=== PATIENT | female | born 2000 | race Caucasian/White ===

== ENCOUNTER 2020-12-29 10:48 | Emergency (ER) | payer OTHER, SELFPAY ==
--- NOTE | 2020-12-29 13:25 | RAD REPORT ---
EXAM DESCRIPTION: CT - Head Brain Wo Cont - 12/29/2020 1:04 pm CLINICAL HISTORY: Headache COMPARISON: None. TECHNIQUE: Computed axial tomography of the head was obtained. IV contrast was not requested. All CT scans are performed using dose optimization technique as appropriate and may include automated exposure control or mA/KV adjustment according to patient size. FINDINGS: An intracranial bleed is not seen . The ventricles are normal in caliber. No extra-axial fluid collection is noted. Fluid within the sinuses/ mastoids is not seen. IMPRESSION: No acute intracranial abnormality is seen. If patient's symptoms persist MRI of the bra in would be recommended.
[2020-12-29] MEDS ORDERED: METOCLOPRAMIDE 10 MG/2mL INJ ONE ×2 (13:32→14:16)
[2020-12-29] MEDS ORDERED: dexAMETHasone 10 MG/ML VIAL ONE (13:33)
[2020-12-29] MEDS ORDERED: NA CHLORIDE 0.9% 500 ML ONE (13:33)
[2020-12-29 13:49] LABS: Urine Blood 2+ (NEG); Urine Glucose NEGATIVE (NEG); Urine Protein NEGATIVE (NEG); Urine Specific Gravity 1.025 (1.005-1.030); Urine pH 5.5 (5.0-7.0)
[2020-12-29] MEDS ORDERED: DIPHENHYDRAMINE 50 MG/ML VIAL ONE (14:16)
[2020-12-29] MEDS ORDERED: KETOROLAC 30 MG/ML INJ ONE (14:17)
--- NOTE | 2020-12-29 14:53 | EDPHYS ---
Physician Documentation [facility] Name: Arlet Cannon Age: 20 yrs Sex: Female : 2000 Arrival Date: 12/29/2020 Time: 10:50 Bed 7 Private MD: ED Physician Floyd Quiros HPI: 12/29 12:45 This 20 yrs old Female presents to ER via Ambulatory with complaints of jmm Headache. 12:45 The patient complains of pain to the left caodaism and right caodaism. Onset: The jmm symptoms/episode began/occurred gradually, 2 week(s) ago. Associated signs and symptoms: Pertinent positives: nausea, Pertinent negatives: fever. This is a 20 year old female with no chronic medical conditions that presents to the ED with complaints of headache beginning 2 weeks ago. Denies trauma. Headache has been gradual on onset. Light exacerbates pain. Denies vomiting but states having nausea. . Historical: - Allergies: 10:58 No Known Allergies; sv - PMHx: 10:58 None; sv - PSHx: 10:58 nose; sv - Immunization history:: Adult Immunizations up to date. - Social history:: Smoking status: Reported history of juuling and/or vaping. ROS: 12:45 Constitutional: Negative for fever, chills, and weight loss, Cardiovascular: Negative jmm for chest pain, palpitations, and edema, Respiratory: Negative for shortness of breath, cough, wheezing, and pleuritic chest pain. 12:45 Neuro: Positive for headache. 12:45 All other systems are negative. Exam: 12:45 Constitutional: This is a well developed, well nourished patient who is awake, alert, jmm and in no acute distress. Head/Face: atraumatic. Eyes: EOMI, no conjunctival erythema appreciated ENT: Moist Mucus Membranes Neck: Trachea midline, Supple Chest/axilla: Normal chest wall appearance and motion. Cardiovascular: Regular rate and rhythm. No edema appreciated Respiratory: Normal respirations, no respiratory distress appreciated Abdomen/GI: Non distended, soft Back: Normal ROM Skin: General appearance color normal MS/ Extremity: Moves all extremities, no obvious deformities appreciated, no edema noted to the lower extremities Neuro: Awake and alert, normal gait Psych: Behavior is normal, Mood is normal, Patient is cooperative and pleasant Vital Signs: 10:59 BP 133 / 89; Pulse 76; Resp 20; Temp 98.6; Pulse Ox 100% ; Weight 63.5 kg; Height 5 ft. sv 3 in. (160.02 cm); Pain 10/10; 15:01 Pain 6/10; ss 10:59 Body Mass Index 24.80 (63.50 kg, 160.02 cm) sv MDM: 12:45 Patient medically screened. [facility] 14:49 Data reviewed: vital signs, nurses notes. Counseling: I had a detailed discussion with brittni the patient and/or guardian regarding: the historical points, exam findings, and any diagnostic results supporting the discharge/admit diagnosis, radiology results, the need for outpatient follow up, to return to the emergency department if symptoms worsen or persist or if there are any questions or concerns that arise at home. ED course: MORALEZ relieved in the ED. Neck is supple, patient is afebrile. I do not suspect SAH or Meningitis. Patient is advised to follow up with pcp and otherwise given strict return precautions. Patient understood and agrees with the plan of care. . 12/29 13:19 Order name: Urine Dipstick--Ancillary (enter results); Complete Time: 13:50 12/29 13:19 Order name: Urine --Ancillary (enter results); Complete Time: 13:50 12/29 12:53 Order name: CT Head Brain wo Cont; Complete Time: 13:26 [facility] 12/29 12:53 Order name: Saline Lock; Complete Time: 13:30 [facility] 12/29 13:06 Order name: Urine Dipstick-Ancillary (obtain specimen); Complete Time: 13:06 ss 12/29 13:06 Order name: Urine Test (obtain specimen); Complete Time: 13:06 ss Administered Medications: 13:28 Drug: Reglan 10 mg Route: IVP; Site: right antecubital; hb 14:00 Follow up: Response: No adverse reaction; No change in condition ss 13:28 Drug: Decadron - Dexamethasone 10 mg Route: IVP; Site: right antecubital; hb 14:00 Follow up: Response: No adverse reaction; No change in condition ss 13:30 Drug: NS 0.9% 500 ml Route: IV; Rate: bolus; Site: right antecubital; hb 15:04 Follow up: IV Status: Completed infusion; IV Intake: 500ml ss 14:01 Drug: Ketorolac 30 mg Route: IVP; Site: right antecubital; hb 15:02 Follow up: Response: No adverse reaction; Marked relief of symptoms; Pain is decreased ss 14:02 Drug: Reglan 10 mg Route: IVP; Site: right antecubital; hb 15:02 Follow up: Response: No adverse reaction; Pain is decreased ss 14:02 Drug: diphenhydrAMINE 12.5 mg Route: IVP; Site: right antecubital; hb 15:02 Follow up: Response: No adverse reaction; Pain is decreased ss Disposition: 15:08 Co-signature as Attending Physician, Floyd Quiros MD I agree with the assessment and kdr plan of care. Disposition: 12/29/20 14:53 Discharged to Home. Impression: Headache. - Condition is Stable. - Medication Reconciliation Form, Thank You Letter, Antibiotic Education, Prescription Opioid Use form. - Follow up: Larry Agosto MD; When: 2 - 3 days; Reason: Recheck today's complaints, Continuance of care, Re-evaluation by your physician. Signatures: Dispatcher [employer] Margie Hamlin RN RN Floyd Quiros MD MD [facility] Phillip Treadwell PA PA [facility] Maddie Madrid RN RN Nancie Adair RN RN Corrections: (The following items were deleted from the chart) 15:04 14:53 12/29/2020 14:53 Discharged to Home. Impression: Headache. Condition is Stable. ss Forms are Medication Reconciliation Form, Thank You Letter, Antibiotic Education, Prescription Opioid Use. Follow up: Larry Agosto; When: 2 - 3 days; Reason: Recheck today's complaints, Continuance of care, Re-evaluation by your physician. brittni
--- NOTE | 2020-12-29 14:53 | ER ---
Nurse's Notes [facility] Name: Arlet Cannon Age: 20 yrs Sex: Female : 2000 Arrival Date: 12/29/2020 Time: 10:50 Bed 7 Private MD: Diagnosis: Headache Presentation: 12/29 10:57 Chief complaint: Patient states: headache, nausea, lightheaded, "full body pain" x 1.5 sv weeks. Coronavirus screen: Client denies travel out of the [place] in the last 14 days. At this time, the client does not indicate any symptoms associated with coronavirus-19. Ebola Screen: No symptoms or risks identified at this time. Risk Assessment: Do you want to hurt yourself or someone else? Patient reports no desire to harm self or others. Onset of symptoms was November 2020. 10:57 Method Of Arrival: Ambulatory sv 10:57 Acuity: KARLA 3 sv 10:59 Initial Sepsis Screen: Does the patient meet any 2 criteria? No. Patient's initial sv sepsis screen is negative. Does the patient have a suspected source of infection? No. Patient's initial sepsis screen is negative. Triage Assessment: 11:01 Headache History: The patient has had previous headaches and this one is similar to previous episodes. General: Appears in no apparent distress. uncomfortable, Behavior is calm, cooperative, appropriate for age. Neuro: Level of Consciousness is awake, alert, obeys commands, Oriented to person, place, time, situation, Gait is steady, Speech is normal. Respiratory: Respiratory effort is even, unlabored. Historical: - Allergies: 10:58 No Known Allergies; sv - PMHx: 10:58 None; sv - PSHx: 10:58 nose; sv - Immunization history:: Adult Immunizations up to date. - Social history:: Smoking status: Reported history of juuling and/or vaping. Screenin:53 Abuse screen: Denies threats or abuse. Denies injuries from another. Nutritional ss screening: No deficits noted. Tuberculosis screening: Never had TB. Fall Risk None identified. Assessment: 12:53 General: Appears in no apparent distress. comfortable, pt is laughing and joking with ss staff. Behavior is calm, cooperative, Denies fever, feeling ill, fatigue, chills. Pain: Complains of pain in head in entire, back of neck Pain currently is 8 out of 10 on a pain scale. at worst was 10 out of 10 on a pain scale. Quality of pain is described as sharp, Pain began x "weeks-months" Is intermittent, episodic. Neuro: Level of Consciousness is awake, alert, obeys commands, Oriented to person, place, time, situation. Cardiovascular: Capillary refill < 3 seconds is brisk. Respiratory: Airway is patent Respiratory effort is even, unlabored, Respiratory pattern is regular, symmetrical. GI: Reports nausea. : No signs and/or symptoms were reported regarding the genitourinary system. Denies burning with urination, urinary frequency. EENT: Reports photophobia. Derm: Skin is intact, is healthy with good turgor, Skin is dry, Skin is pink, warm \\T\\ dry. normal. Musculoskeletal: Circulation, motion, and sensation intact. Range of motion: intact in all extremities, Swelling absent. 13:05 Reassessment: Pt to CT now VIA wheelchair. 14:14 Reassessment: Pt reports that initial medications that were given did not help at all. EHSAN Fisher notified. Additional medications ordered and administered. Pt is anxious to go home, but verbalizes understanding plan of care. 14:42 Reassessment: Patient appears in no apparent distress at this time. Patient and/or ss family updated on plan of care and expected duration. Pain level reassessed. Patient is alert, oriented x 3, equal unlabored respirations, skin warm/dry/pink. Patient states feeling better. Patient states symptoms have improved. Vital Signs: 10:59 BP 133 / 89; Pulse 76; Resp 20; Temp 98.6; Pulse Ox 100% ; Weight 63.5 kg; Height 5 ft. sv 3 in. (160.02 cm); Pain 10/10; 15:01 Pain 6/10; ss 10:59 Body Mass Index 24.80 (63.50 kg, 160.02 cm) sv ED Course: 10:50 Patient arrived in ED. mr 10:58 Triage completed. sv 10:59 Arm band placed on. sv 11:16 Phillip Treadwell PA is PHCP. [facility] 11:16 Floyd Quiros MD is Attending Physician. [facility] 12:53 Maddie Madrid, RN is Primary Nurse. ss 12:53 Patient has correct armband on for positive identification. Bed in low position. Call ss light in reach. 13:03 CT Head Brain wo Cont In Process Unspecified. EDMS 13:26 Missed attempt(s): 20 gauge in right antecubital area. Bleeding controlled, band aid hb applied, catheter tip intact. 13:30 Inserted saline lock: 22 gauge in right antecubital area, using aseptic technique. hb 14:53 Larry Agosto MD is Referral Physician. [facility] 15:02 No provider procedures requiring assistance completed. IV discontinued, intact, ss bleeding controlled, No redness/swelling at site. Pressure dressing applied. Administered Medications: 13:28 Drug: Reglan 10 mg Route: IVP; Site: right antecubital; hb 14:00 Follow up: Response: No adverse reaction; No change in condition ss 13:28 Drug: Decadron - Dexamethasone 10 mg Route: IVP; Site: right antecubital; hb 14:00 Follow up: Response: No adverse reaction; No change in condition 13:30 Drug: NS 0.9% 500 ml Route: IV; Rate: bolus; Site: right antecubital; hb 15:04 Follow up: IV Status: Completed infusion; IV Intake: 500ml ss 14:01 Drug: Ketorolac 30 mg Route: IVP; Site: right antecubital; hb 15:02 Follow up: Response: No adverse reaction; Marked relief of symptoms; Pain is decreased ss 14:02 Drug: Reglan 10 mg Route: IVP; Site: right antecubital; hb 15:02 Follow up: Response: No adverse reaction; Pain is decreased ss 14:02 Drug: diphenhydrAMINE 12.5 mg Route: IVP; Site: right antecubital; hb 15:02 Follow up: Response: No adverse reaction; Pain is decreased ss Intake: 15:04 IV: 500ml; Total: 500ml. Outcome: 14:53 Discharge ordered by . [facility] 15:02 Discharged to home ambulatory. 15:02 Condition: good 15:02 Discharge instructions given to patient, family, Instructed on discharge instructions, follow up and referral plans. Demonstrated understanding of instructions, follow-up care, medications. 15:04 Patient left the ED. ss Signatures: Dispatcher [employer] EDMS Margie Hackett RN RN sv Phillip Treadwell PA PA jmm Rivera, Mary mr Maddie Madrid RN RN Nancie Adair RN RN hb Corrections: (The following items were deleted from the chart) 11:00 10:59 Pulse 76bpm; Resp 20bpm; Pulse Ox 100%; Temp 98.6F; 63.5 kg; Height 5 ft. 3 in.; sv BMI: 24.8; Pain 10/10; sv 13:31 13:30 Inserted saline lock: 20 gauge in right antecubital area, using aseptic hb technique. hb
[2020-12-29 15:08] VITALS: BP 133/89; TEMP 98.6; O2SAT 100
== END 2020-12-29 15:04 | disposition home or self-care (01) ==
LOC: ER 10:48
DX: R51.9 Headache, unspecified (principal); Z87.891 Personal history of nicotine dependence
CPT/HCPCS: 70450; 81003; 81025; 96361; 96374; 96375; 99283; J1100; J1200; J2765; J7040

== ENCOUNTER 2021-03-18 00:11 | Emergency (ER) | payer SELFPAY ==
[2021-03-18 01:25] LABS: Urine Blood Negative (Negative); Urine Glucose Negative (Negative); Urine Protein Negative (Negative); Urine pH 5.5 (5.0-7.0)
[2021-03-18 01:28] LABS: Absolute Lymphocytes (CBC) 1.4 K/uL (0.7-4.9); Basophils % 0.6 % (0-1.3); Hematocrit 39.8 % (36.0-45.0); Lymphocytes % 22.7 % (15.3-44.8); MPV 9.1 fL (7.6-11.3); RBC Red Blood Cell Count 4.86 M/uL (3.86-4.86)
[2021-03-18] MEDS ORDERED: NA CHLORIDE 0.9% 1,000 ML ONE (01:44)
[2021-03-18] MEDS ORDERED: ONDANSETRON 4 MG/2 ML VIAL ONE (01:44)
[2021-03-18 01:54] LABS: ALT/SGPT 18 U/L (12-78); Albumin 4.2 g/dL (3.4-5.0); Alkaline Phosphatase 59 U/L (45-117); BUN Blood Urea Nitrogen 11 mg/dL (7-18); Bicarbonate 23 mmol/L (21-32); Bilirubin Direct < 0.1 mg/dL (0-0.2); Bilirubin Total 0.2 mg/dL (0.2-1.0); Glucose Level 86 mg/dL (74-106); Lipase 243 U/L (73-393); Protein, Total 7.7 g/dL (6.4-8.2); Sodium Level 139 mmol/L (136-145)
[2021-03-18 01:55] LABS: AST/SGOT 14 U/L (15-37); Potassium 4.3 mmol/L (3.5-5.1)
--- NOTE | 2021-03-18 02:33 | ER ---
Nurse's Notes [facility] Name: Arlet Cannon Age: 20 yrs Sex: Female : 2000 Arrival Date: 03/18/2021 Time: 00:15 Bed 16 Private MD: Diagnosis: Nausea and vomiting Presentation: 03/18 00:31 Chief complaint: Patient states: I have been feeling off for the past 3 week and have jb4 vomited 3 times in the past 3 weeks, once tonight. I have chest congestion, runny nose, and coughing. I last vomited tonight at work. Coronavirus screen: Client denies travel out of the [place] in the last 14 days. congestion, cough unrelated to allergies, fatigue, nausea, vomiting. Client presents with at least one sign or symptom that may indicate coronavirus-19. Standard/surgical mask placed on the client. Provider contacted for isolation considerations. Ebola Screen: No symptoms or risks identified at this time. Initial Sepsis Screen: Does the patient meet any 2 criteria? No. Patient's initial sepsis screen is negative. Does the patient have a suspected source of infection? No. Patient's initial sepsis screen is negative. Risk Assessment: Do you want to hurt yourself or someone else? Patient reports no desire to harm self or others. Onset of symptoms was March 18, 2021. 00:31 Method Of Arrival: Ambulatory jb4 00:31 Acuity: KARLA 3 jb4 Historical: - Allergies: 00:34 No Known Allergies; jb4 - Home Meds: 00:34 None [Active]; jb4 - PMHx: 00:34 None; jb4 - PSHx: 00:34 nose; jb4 - Immunization history:: Adult Immunizations up to date, Client reports having NOT received the Covid vaccine. - Social history:: Smoking status: Patient denies any tobacco usage or history of. Patient/guardian denies using alcohol, street drugs. Screenin:10 Abuse screen: Denies threats or abuse. Nutritional screening: No deficits noted. ea Tuberculosis screening: No symptoms or risk factors identified. Fall Risk IV access (20 points). Assessment: 01:10 General: Appears in no apparent distress. Behavior is calm, cooperative, appropriate ea for age. Pain: Complains of pain in abdomen. Neuro: Level of Consciousness is awake, alert, obeys commands, Oriented to person, place, time. Respiratory: Airway is patent Respiratory effort is even, unlabored, Respiratory pattern is regular, symmetrical. GI: Abdomen is non-distended. Derm: Skin is pink, warm \T\ dry. 02:48 Reassessment: Patient and/or family updated on plan of care and expected duration. Pain ea level reassessed. Patient is alert, oriented x 3, equal unlabored respirations, skin warm/dry/pink. Discharge instruction given to patient verbalized the understanding of instruction. Pt left ED ambulatory tolerating well. Vital Signs: 00:31 BP 122 / 81; Pulse 99; Resp 16; Temp 98.3(O); Pulse Ox 96% on R/A; Weight 65.77 kg (R); jb4 Height 5 ft. 3 in. (160.02 cm) (R); Pain 8/10; 00:31 Body Mass Index 25.69 (65.77 kg, 160.02 cm) jb4 ED Course: 00:15 Patient arrived in ED. bp1 00:31 Eric Cuadra MD is Attending Physician. tw4 00:33 Triage completed. jb4 00:34 Arm band placed on. jb4 00:52 Lianna Moreno, CHERRIE is Primary Nurse. ea 01:10 Patient has correct armband on for positive identification. Bed in low position. Call ea light in reach. Side rails up X2. 01:10 Inserted saline lock: 20 gauge in right antecubital area, using aseptic technique. ea Blood collected. 02:47 No provider procedures requiring assistance completed. IV discontinued, intact, ea bleeding controlled, No redness/swelling at site. Pressure dressing applied. Administered Medications: 01:30 Drug: Zofran (Ondansetron) 4 mg Route: IVP; Site: right antecubital; ea 02:45 Follow up: Response: No adverse reaction ea 01:31 Drug: NS 0.9% 1000 ml Route: IV; Rate: 1 bolus; Site: right antecubital; ea 02:45 Follow up: Response: No adverse reaction; IV Status: Completed infusion; IV Intake: ea 700ml Intake: 02:45 IV: 700ml; Total: 700ml. ea Outcome: 02:33 Discharge ordered by . tw4 02:47 Discharged to home ambulatory, with family. ea 02:47 Condition: stable 02:47 Discharge instructions given to patient, Instructed on discharge instructions, follow up and referral plans. medication usage, Demonstrated understanding of instructions, follow-up care, medications, Prescriptions given X 1. 02:48 Patient left the ED. daphney Signatures: Rd Sepulveda RN RN jb4 Lianna Moreno RN RN Eric Andujar MD MD tw4 Olivia Dos Santos [facility] [place]
--- NOTE | 2021-03-18 02:33 | EDPHYS ---
Physician Documentation [facility] Name: Arlet Cannon Age: 20 yrs Sex: Female : 2000 Arrival Date: 03/18/2021 Time: 00:15 Bed 16 Private MD: ED Physician Eric Cuadra HPI: 03/18 02:51 This 20 yrs old Female presents to ER via Ambulatory with complaints of tw4 Dizziness, Nausea/Vomiting. 02:51 The patient presents to the emergency department with nausea, vomiting. Onset: The tw4 symptoms/episode began/occurred today. Possible causes: unknown. The symptoms are aggravated by nothing. The symptoms are alleviated by nothing. Associated signs and symptoms: The patient has no apparent associated signs or symptoms. Severity of symptoms: At their worst the symptoms were mild in the emergency department the symptoms have resolved. The patient has not experienced similar symptoms in the past. Historical: - Allergies: 00:34 No Known Allergies; jb4 - Home Meds: 00:34 None [Active]; jb4 - PMHx: 00:34 None; jb4 - PSHx: 00:34 nose; jb4 - Immunization history:: Adult Immunizations up to date, Client reports having NOT received the Covid vaccine. - Social history:: Smoking status: Patient denies any tobacco usage or history of. Patient/guardian denies using alcohol, street drugs. ROS: 02:51 Constitutional: Negative for fever, chills, and weight loss, Eyes: Negative for injury, tw4 pain, redness, and discharge, Cardiovascular: Negative for chest pain, palpitations, and edema, Respiratory: Negative for shortness of breath, cough, wheezing, and pleuritic chest pain, Back: Negative for injury and pain, MS/Extremity: Negative for injury and deformity, Skin: Negative for injury, rash, and discoloration, Neuro: Negative for headache, weakness, numbness, tingling, and seizure. 02:51 Abdomen/GI: Positive for abdominal pain, nausea and vomiting, nausea, vomiting, and diarrhea, nausea, vomiting, Negative for nausea and vomiting, diarrhea, constipation, abdominal cramps, abdominal distension, anorexia, dysphagia, hematemesis, black/tarry stool, rectal pain, rectal bleeding. Exam: 02:51 Constitutional: This is a well developed, well nourished patient who is awake, alert, tw4 and in no acute distress. Head/Face: Normocephalic, atraumatic. Chest/axilla: Normal chest wall appearance and motion. Nontender with no deformity. No lesions are appreciated. Cardiovascular: Regular rate and rhythm with a normal S1 and S2. No gallops, murmurs, or rubs. Normal PMI, no JVD. No pulse deficits. Respiratory: Lungs have equal breath sounds bilaterally, clear to auscultation and percussion. No rales, rhonchi or wheezes noted. No increased work of breathing, no retractions or nasal flaring. Abdomen/GI: Soft, non-tender, with normal bowel sounds. No distension or tympany. No guarding or rebound. No evidence of tenderness throughout. Back: No spinal tenderness. No costovertebral tenderness. Full range of motion. Skin: Warm, dry with normal turgor. Normal color with no rashes, no lesions, and no evidence of cellulitis. MS/ Extremity: Pulses equal, no cyanosis. Neurovascular intact. Full, normal range of motion. Neuro: Awake and alert, GCS 15, oriented to person, place, time, and situation. Cranial nerves II-XII grossly intact. Motor strength 5/5 in all extremities. Sensory grossly intact. Cerebellar exam normal. Normal gait. Vital Signs: 00:31 BP 122 / 81; Pulse 99; Resp 16; Temp 98.3(O); Pulse Ox 96% on R/A; Weight 65.77 kg (R); jb4 Height 5 ft. 3 in. (160.02 cm) (R); Pain 8/10; 00:31 Body Mass Index 25.69 (65.77 kg, 160.02 cm) jb4 MDM: 00:51 Patient medically screened. tw4 02:51 Differential diagnosis: Nonspecific abd pain, gastritis, cholecystitis. Data reviewed: tw4 vital signs, nurses notes. Data interpreted: Pulse oximetry: Interpretation: normal. Counseling: I had a detailed discussion with the patient and/or guardian regarding: the historical points, exam findings, and any diagnostic results supporting the discharge/admit diagnosis. Special discussion: I discussed with the patient/guardian in detail that at this point there is no indication for admission to the hospital. It is understood, however, that if the symptoms persist or worsen the patient needs to return immediately for re-evaluation. 03/18 00:31 Order name: Basic Metabolic Panel; Complete Time: 02:29 tw03/18 02:29 Interpretation: Normal except: CL 110. 03/18 00:31 Order name: CBC with Diff; Complete Time: 02:29 03/18 02:30 Interpretation: Normal except: MCH 26.2; RDW 17.6. 03/18 00:31 Order name: Hepatic Function; Complete Time: 02:29 03/18 02:30 Interpretation: Normal except: AST 14. 03/18 00:31 Order name: Lipase; Complete Time: 02:29 03/18 02:30 Interpretation: Within normal limits: LIP 243. 03/18 01:25 Order name: Urine Dipstick-Ancillary; Complete Time: 02:30 EDMS 03/18 02:30 Interpretation: Normal except: UKET Trace; UESTR Trace. 03/18 01:25 Order name: Urine --Ancillary (enter results); Complete Time: 02:29 tt3 03/18 02:30 Interpretation: Within normal limits: URINE PREG NEG; USPGRP 1.020. 03/18 00:31 Order name: IV Saline Lock; Complete Time: 01:10 03/18 00:31 Order name: Labs collected and sent; Complete Time: 01:10 03/18 01:19 Order name: Urine Dipstick-Ancillary (obtain specimen); Complete Time: 01:24 03/18 01:19 Order name: Urine Test (obtain specimen); Complete Time: 01:24 Administered Medications: 01:30 Drug: Zofran (Ondansetron) 4 mg Route: IVP; Site: right antecubital; ea 02:45 Follow up: Response: No adverse reaction ea 01:31 Drug: NS 0.9% 1000 ml Route: IV; Rate: 1 bolus; Site: right antecubital; ea 02:45 Follow up: Response: No adverse reaction; IV Status: Completed infusion; IV Intake: ea 700ml Disposition: 03/18/21 02:33 Discharged to Home. Impression: Nausea and vomiting. - Condition is Stable. - Discharge Instructions: Nausea and Vomiting, Adult, Vomiting, Adult. - Prescriptions for Zofran 4 mg Oral Tablet - take 1 tablet by ORAL route every 12 hours As needed; 20 tablet. - Work release form, Medication Reconciliation Form, Thank You Letter, Antibiotic Education, Prescription Opioid Use form. - Follow up: Private Physician; When: Upon discharge from the Emergency Department; Reason: Recheck today's complaints, Continuance of care, Re-evaluation by your physician. - Problem is new. - Symptoms have improved. Signatures: Dispatcher [employer] EDRd Thorne RN RN jb4 Lianna Moreno RN RN ea Wadley, Terrence, MD MD tw4 Corrections: (The following items were deleted from the chart) 02:48 02:33 03/18/2021 02:33 Discharged to Home. Impression: Nausea and vomiting. Condition ea is Stable. Forms are Medication Reconciliation Form, Thank You Letter, Antibiotic Education, Prescription Opioid Use. Follow up: Private Physician; When: Upon discharge from the Emergency Department; Reason: Recheck today's complaints, Continuance of care, Re-evaluation by your physician. Problem is new. Symptoms have improved. tw4
[2021-03-18 02:54] VITALS: BP 122/81; TEMP 98.3; O2SAT 96
== END 2021-03-18 02:48 | disposition home or self-care (01) ==
LOC: ER 00:11
DX: R11.2 Nausea with vomiting, unspecified (principal)
CPT/HCPCS: 36415; 80048; 80076; 81003; 81025; 83690; 85025; 96361; 96374; 99284; J2405; J7030

== ENCOUNTER 2021-09-04 17:09 | Emergency (ER) | payer SELFPAY ==
--- NOTE | 2021-09-04 19:58 | EDPHYS ---
Physician Documentation [facility] Name: Arlet Cannon Age: 21 yrs Sex: Female : 2000 Arrival Date: 09/04/2021 Time: 17:12 Bed 13 Private MD: ED Physician Wellington Elkins HPI: 09/04 18:45 This 21 yrs old Female presents to ER via Ambulatory with complaints of cp Congestion, Cough. 18:45 The patient or guardian reports cough, that is intermittent, with productive sputum. cp Onset: The symptoms/episode began/occurred 3 day(s) ago. 18:45 Associated signs and symptoms: Pertinent positives: sore throat, Pertinent negatives: cp diarrhea, fever, vomiting. 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 - Social history:: Smoking status: Reported history of juuling and/or vaping. ROS: 18:50 Constitutional: Positive for fatigue, Negative for body aches, chills, fever, poor PO cp intake. 18:50 Eyes: Negative for injury, pain, redness, and discharge. cp Exam: 18:55 Constitutional: The patient appears in no acute distress, alert, awake, non-toxic, well cp developed, well nourished. 18:55 Head/Face: Normocephalic, atraumatic. cp 18:55 Eyes: Periorbital structures: appear normal, Conjunctiva: normal, no exudate, no injection, Sclera: no appreciated abnormality, Lids and lashes: appear normal, bilaterally. 18:55 ENT: External ear(s): are unremarkable, Ear canal(s): are normal, clear, TM's: bulging, is not appreciated, bilaterally, dullness, bilaterally, erythema, is not appreciated, bilaterally, Nose: is normal, Mouth: Lips: moist, Oral mucosa: pink and intact, moist, Posterior pharynx: Airway: no evidence of obstruction, patent, Tonsils: are normal in appearance, Uvula: midline, erythema, that is mild, exudate, is not appreciated. 18:55 Neck: ROM/movement: is normal, is supple, without pain, no range of motions limitations, no meningismus, Lymph nodes: no appreciated lymphadenopathy. 18:55 Chest/axilla: Inspection: normal. 18:55 Cardiovascular: Rate: normal, Rhythm: regular. 18:55 Respiratory: the patient does not display signs of respiratory distress, Respirations: normal, no use of accessory muscles, no retractions, labored breathing, is not present, Breath sounds: are clear throughout, no decreased breath sounds, no stridor, no wheezing. 18:55 Abdomen/GI: Exam negative for discomfort, distension, guarding, Inspection: abdomen appears normal. 18:55 Skin: rash can be described as nonspecific, on the face. 18:55 Neuro: Orientation: to person, place \T\ time. Mentation: is normal, Motor: moves all fours, strength is normal, Sensation: is normal. Vital Signs: 17:25 BP 118 / 75; Pulse 97; Resp 16; Temp 98.4(O); Pulse Ox 100% ; Weight 65.77 kg; Height 5 vg1 ft. 3 in. (160.02 cm); Pain 8/10; 19:15 BP 113 / 71; Pulse 69; Resp 20; Temp 97.9(O); Pulse Ox 100% on R/A; cc4 21:55 BP 123 / 80; Pulse 92; Resp 20; Temp 98.0; Pulse Ox 98% on R/A; cc4 17:25 Body Mass Index 25.69 (65.77 kg, 160.02 cm) vg1 MDM: 18:39 Patient medically screened. cp 19:00 Differential Diagnosis: Bronchitis Influenza Upper Respiratory Infection Sinusitis cp Otitis Media Viral Syndrome Pneumonia. 19:58 Data reviewed: vital signs, nurses notes, lab test result(s). cp 19:58 Counseling: I had a detailed discussion with the patient and/or guardian regarding: the cp historical points, exam findings, and any diagnostic results supporting the discharge/admit diagnosis, lab results, to return to the emergency department if symptoms worsen or persist or if there are any questions or concerns that arise at home. ED course: VSS. Will discharge to home for continued monitoring. Recommend symptomatic treatment. 09/04 17:31 Order name: Flu vg1 09/04 17:31 Order name: Strep vg1 09/04 17:32 Order name: Influenza Screen (A ; Complete Time: 19:53 EDSD 09/04 17:32 Order name: Group A Streptococcus Rapid Sc; Complete Time: 19:53 EDSD 09/04 18:13 Order name: SARS-COV-2 RT PCR; Complete Time: 19:53 EDSD 09/04 19:40 Order name: Throat Culture EDSD 09/04 19:57 Order name: Urine Dipstick-Ancillary (obtain specimen); Complete Time: 21:01 cp 09/04 19:57 Order name: Urine Test (obtain specimen); Complete Time: 21:01 cp 09/04 20:58 Order name: Urine Dipstick-Ancillary EDSD 09/04 21:01 Order name: Urine --Ancillary (enter results) tt3 Administered Medications: No medications were administered Disposition Summary: 09/04/21 19:58 Discharge Ordered Location: Home cp Problem: new cp Symptoms: are unchanged cp Condition: Stable cp Diagnosis - Acute upper respiratory infection, unspecified cp Followup: cp - With: Private Physician - When: 2 - 3 days - Reason: Worsening of condition Discharge Instructions: - Discharge Summary Sheet cp - Upper Respiratory Infection, Adult cp - Viral Respiratory Infection cp - Cool Mist Vaporizer cp - Form - Excuse from Work, School, or Physical Activity cp Forms: - Medication Reconciliation Form cp - Thank You Letter cp - Antibiotic Education cp - Prescription Opioid Use cp - Work release form cc4 Prescriptions: - Tessalon Perles 100 mg Oral Capsule - take 2 capsule by ORAL route every 8 hours As needed; 30 capsule; Refills: 0, cp Product Selection Permitted Addendum: 09/08/2021 01:56 Co-signature as Attending Physician, Wellington Elkins MD I agree with the assessment and r n plan of care. Attestation: The patient's history, exam findings, diagnostics, and a summary of any interventions or procedures was reviewed in detail with Bradley MOSER. Signatures: Dispatcher [employer] Wellington Cloud MD MD rn Page, Corey, PA PA cp Garcia, Victoria RN RN vg1 Corrections: (The following items were deleted from the chart) 09/04 17:29 17:28 PSHx: None; vg1 vg1 18:13 17:31 CORONAVIRUS+MR.LAB.BRZ ordered. EDMS EDMS 18:41 18:40 Urine Dipstick-Ancillary ordered. cp cp 18:41 18:40 Urine Test ordered. cp cp
--- NOTE | 2021-09-04 19:58 | ER ---
Nurse's Notes [facility] Name: Arlet Cannon Age: 21 yrs Sex: Female : 2000 Arrival Date: 09/04/2021 Time: 17:12 Bed 13 Private MD: Diagnosis: Acute upper respiratory infection, unspecified Presentation: 09/04 17:25 Chief complaint: Patient states: For about three days pt states cough, congestion, vg1 sneezing, sore throat, clogged ears, headache, nausea, dizziness and chest pain. Coronavirus screen: Vaccine status: Patient reports receiving the 2nd dose of the covid vaccine. Client presents with at least one sign or symptom that may indicate coronavirus-19. Standard/surgical mask placed on the client. Ebola Screen: Patient negative for fever greater than or equal to 101.5 degrees Fahrenheit, and additional compatible Ebola Virus Disease symptoms. Initial Sepsis Screen: Does the patient meet any 2 criteria? No. Patient's initial sepsis screen is negative. Does the patient have a suspected source of infection? No. Patient's initial sepsis screen is negative. Risk Assessment: Do you want to hurt yourself or someone else? Patient reports no desire to harm self or others. Onset of symptoms was September 01, 2021. 17:25 Method Of Arrival: Ambulatory vg1 17:25 Acuity: KARLA 3 vg1 Triage Assessment: 17:28 General: Appears in no apparent distress. comfortable, Behavior is calm, cooperative. vg1 Pain: Complains of pain in body Pain currently is 8 out of 10 on a pain scale. Quality of pain is described as aching. 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 - Social history:: Smoking status: Reported history of juuling and/or vaping. Screenin:59 Abuse screen: Denies threats or abuse. Nutritional screening: No deficits noted. ll1 Tuberculosis screening: No symptoms or risk factors identified. Fall Risk None identified. Total Ctoo Fall Scale indicates No Risk (0-24 pts). Assessment: 17:58 Reassessment: No changes from previously documented assessment. Patient and/or family ll1 updated on plan of care and expected duration. Pain level reassessed. Patient is alert, oriented x 3, equal unlabored respirations, skin warm/dry/pink. Cardiovascular: No deficits noted. Respiratory: Reports cough that is Breath sounds are clear bilaterally. Onset: The symptoms/episode began/occurred 3 days. 18:27 Cardiovascular: No deficits noted. Respiratory: Reports cough that is Breath sounds are ll1 clear bilaterally. 19:15 Reassessment: Patient appears in no apparent distress at this time. Cardiovascular: cc4 Denies chest pain, shortness of breath. Respiratory: No deficits noted. Airway is patent Breath sounds are clear. 21:55 Reassessment: No changes from previously documented assessment. Reports con't nasal cc4 congestion; no cough or nasal discharge noted. Vital Signs: 17:25 BP 118 / 75; Pulse 97; Resp 16; Temp 98.4(O); Pulse Ox 100% ; Weight 65.77 kg; Height 5 vg1 ft. 3 in. (160.02 cm); Pain 8/10; 19:15 BP 113 / 71; Pulse 69; Resp 20; Temp 97.9(O); Pulse Ox 100% on R/A; cc4 21:55 BP 123 / 80; Pulse 92; Resp 20; Temp 98.0; Pulse Ox 98% on R/A; cc4 17:25 Body Mass Index 25.69 (65.77 kg, 160.02 cm) vg1 ED Course: 17:12 Patient arrived in ED. rg4 17:28 Triage completed. vg1 17:28 Arm band placed on. vg1 17:35 COVID swab sent to lab. Flu and/or RSV swab sent to lab. Strep swab sent to lab. vg1 17:36 Geovanny Enriquez, RN is Primary Nurse. ll1 17:59 Patient has correct armband on for positive identification. Bed in low position. Call ll1 light in reach. Side rails up X 1. Cardiac monitoring not applicable on this patient. 17:59 Flu Sent. ll1 17:59 Strep Sent. ll1 18:29 Bradley Joseph PA is PHCP. cp 18:29 Wellington Elkins MD is Attending Physician. cp 21:13 Urine --Ancillary (enter results) Sent. cc4 21:55 No provider procedures requiring assistance completed. cc4 21:55 Patient did not have IV access during this emergency room visit. cc4 Administered Medications: No medications were administered Outcome: 19:58 Discharge ordered by MD. cp 21:20 Patient left the ED. em 21:55 Discharged to home ambulatory, with friend. cc4 21:55 Condition: stable 21:55 Discharge instructions given to patient, Instructed on discharge instructions, follow up and referral plans. medication usage, Demonstrated understanding of instructions, follow-up care, medications, Prescriptions given X 1. Signatures: Arun Metcalf RN RN Bradley Joseph PA PA cp Nicole Carranza rg4 Lyndsay Carranza RN RN 1 Geovanny Enriquez RN RN 1 Mitzi Chavez RN RN cc4 Corrections: (The following items were deleted from the chart) 17:29 17:28 PSHx: None; [place] [id number] 18:11 18:00 COVID swab sent to lab. Flu and/or RSV swab sent to lab. Strep swab sent to lab. [place] [id number] 18:13 17:59 CORONAVIRUS+MR.LAB.BRZ drawn and sent. [facility] EDNY
[2021-09-04 20:58] LABS: Urine Blood Negative (Negative); Urine Glucose Negative (Negative); Urine Protein Negative (Negative); Urine Specific Gravity >=1.030 (1.005-1.030); Urine pH 5.5 (5.0-7.0)
[2021-09-04 21:15] LABS: Urine Specific Gravity/Preg >1.030 (1.005-1.030)
[2021-09-04 21:32] VITALS: BP 118/75; TEMP 98.4; O2SAT 100
== END 2021-09-04 21:20 | disposition home or self-care (01) ==
LOC: ER 17:09
DX: J06.9 Acute upper respiratory infection, unspecified (principal); Z20.822 Contact with and (suspected) exposure to COVID-19
CPT/HCPCS: 81003; 81025; 87070; 87081; 87804; 99283; U0003

== ENCOUNTER 2022-10-04 14:06 | Emergency (ER) | payer SELFPAY ==
--- OUTSIDE RECORDS SUMMARY | 2022-10-04 14:09 | XMS REPORT | Continuity of Care Document ---
:2000 Author Organization [facility] t Address [address] [place] [address] Care Team Providers Name Role Phone Shield Attending Clinician Unavailable Shield Admitting Clinician Unavailable Problems This patient has no known problems. Allergies, Adverse Reactions, Alerts This patient has no known allergies or adverse reactions. Medications This patient has no known medications. Procedures This patient has no known procedures. Encounters Start End Encounter Admission Attending Care Care Encounter Source Date/Time Date/Time Type Type Clinicians Facility Department ID 2020-03-30 2020-03-30 Outpatient [facility] [id number] [place] 11:13:00 11:13:00 [facility] Results This patient has no known results.
[2022-10-04] MEDS ORDERED: IBUPROFEN 200 MG TAB PO ONE (14:33)
[2022-10-04 15:29] LABS: SARS-COV-2 RT PCR NEGATIVE (NEGATIVE)
--- NOTE | 2022-10-04 15:38 | ER ---
Nurse's Notes [facility] Name: Arlet Cannon Age: 22 yrs Sex: Female : 2000 Arrival Date: 10/04/2022 Time: 14:09 Bed 12 Private MD: Diagnosis: Influenza due to identified novel influenza A virus Presentation: 10/04 14:13 Chief complaint: Patient states: Congestion, cough, body aches, MORALEZ, sore throat since ll1 Sunday. Coronavirus screen: Vaccine status: Patient reports receiving the 2nd dose of the covid vaccine. Client denies travel out of the [place] in the last 14 days. congestion, cough unrelated to allergies, fatigue, fever, headache, muscle pain, nausea, sore throat, Client presents with at least one sign or symptom that may indicate coronavirus-19. Standard/surgical mask placed on the client. Ebola Screen: Patient denies travel to an Ebola-affected area in the 21 days before illness onset. Initial Sepsis Screen: Does the patient meet any 2 criteria? Temp <36.0*C (96.8*F)) or > 38.3*C (100.9*F). HR > 90 bpm. Yes Does the patient have a suspected source of infection? Yes: Productive cough/pneumonia. Risk Assessment: Do you want to hurt yourself or someone else? Patient reports no desire to harm self or others. Onset of symptoms was October 02, 2022. 14:13 Method Of Arrival: Ambulatory [facility] 14:13 Acuity: KARLA 4 1 Triage Assessment: 14:15 General: Appears uncomfortable, ill, Behavior is calm, cooperative, appropriate for 1 age. Pain: Complains of pain in head Pain currently is 10 out of 10 on a pain scale. Quality of pain is described as aching. EENT: Reports nasal congestion pain when swallowing. Neuro: Reports headache weakness. Respiratory: Reports cough that is. Historical: - Allergies: 14:12 No Known Allergies; ll1 - PMHx: 14:12 None; ll1 - PSHx: 14:12 nasal SX; ll1 - Immunization history:: Client reports receiving the 2nd dose of the Covid vaccine. - Social history:: Smoking status: Patient reports the use of cigarette tobacco products, denies chronic smoking, but will smoke occasionally, Reported history of juuling and/or vaping. Vital Signs: 14:13 BP 92 / 70; Pulse 115; Resp 18; Temp 101.9; Pulse Ox 99% ; Weight 60.78 kg; Height 5 ll1 ft. 3 in. (160.02 cm); Pain 10/10; 14:13 Body Mass Index 23.74 (60.78 kg, 160.02 cm) ll1 ED Course: 14:09 Patient arrived in ED. as 14:14 Triage completed. ll1 14:15 Ya Ragsdale [facility]C [facility]. snw 14:15 Floyd Quiros MD is Attending Physician. snw 14:15 Arm band placed on Patient placed in an exam room, on a stretcher. ll1 14:22 Altagracia Weathers, RN is Primary Nurse. iw Administered Medications: 14:38 Drug: Motrin (ibuprofen) 600 mg Route: PO; iw Outcome: 15:37 Discharge ordered by . snw 16:34 Patient left the ED. iw Signatures: Ya Ragsdale FNP-C FNP-Veronica Carl as Altagracia Weathers, RN RN iw Geovanny Enriquez RN RN ll1
--- NOTE | 2022-10-04 15:38 | EDPHYS ---
Physician Documentation [facility] Name: Arlet Cannon Age: 22 yrs Sex: Female : 2000 Arrival Date: 10/04/2022 Time: 14:09 Bed 12 Private MD: ED Physician Floyd Quiros HPI: 10/04 19:23 This 22 yrs old Female presents to ER via Ambulatory with complaints of Flu Symptoms. snw 19:23 Onset: The symptoms/episode began/occurred suddenly, 4 day(s) ago, and became snw persistent. Modifying factors: The symptoms are alleviated by nothing. Associated signs and symptoms: Pertinent positives: fever, rhinorrhea, sore throat. Severity of symptoms: At their worst the symptoms were moderate. It is unknown whether or not the patient has had similar symptoms in the past. The patient has not recently seen a physician. Historical: - Allergies: 14:12 No Known Allergies; ll1 - PMHx: 14:12 None; ll1 - PSHx: 14:12 nasal SX; ll1 - Immunization history:: Client reports receiving the 2nd dose of the Covid vaccine. - Social history:: Smoking status: Patient reports the use of cigarette tobacco products, denies chronic smoking, but will smoke occasionally, Reported history of juuling and/or vaping. ROS: 19:23 Eyes: Negative for injury, pain, redness, and discharge, ENT: Negative for injury, snw pain, and discharge, Neck: Negative for injury, pain, and swelling, Cardiovascular: Negative for chest pain, palpitations, and edema. 19:23 Abdomen/GI: Negative for abdominal pain, nausea, vomiting, diarrhea, and constipation, Back: Negative for injury and pain, : Negative for injury, bleeding, discharge, and swelling, MS/Extremity: Negative for injury and deformity, Skin: Negative for injury, rash, and discoloration, Neuro: Negative for headache, weakness, numbness, tingling, and seizure. 19:23 Constitutional: Positive for body aches, chills, fatigue, fever, malaise, poor PO intake. 19:23 Respiratory: Positive for cough, with no reported sputum. Exam: 19:22 Abdomen/GI: Soft, non-tender, with normal bowel sounds. No distension or tympany. No snw guarding or rebound. No evidence of tenderness throughout. Back: No spinal tenderness. No costovertebral tenderness. Full range of motion. Skin: Warm, dry with normal turgor. Normal color with no rashes, no lesions, and no evidence of cellulitis. MS/ Extremity: Pulses equal, no cyanosis. Neurovascular intact. Full, normal range of motion. Neuro: Awake and alert, GCS 15, oriented to person, place, time, and situation. Cranial nerves II-XII grossly intact. Motor strength 5/5 in all extremities. Sensory grossly intact. Cerebellar exam normal. Normal gait. Psych: Awake, alert, with orientation to person, place and time. Behavior, mood, and affect are within normal limits. 19:22 Constitutional: This is a well developed, well nourished patient who is awake, alert, and in no acute distress. + congestion, + fever, + cough Head/Face: Normocephalic, atraumatic. Eyes: Pupils equal round and reactive to light, extra-ocular motions intact. Lids and lashes normal. Conjunctiva and sclera are non-icteric and not injected. Cornea within normal limits. Periorbital areas with no swelling, redness, or edema. ENT: Nares patent. No nasal discharge, no septal abnormalities noted. Tympanic membranes are normal and external auditory canals are clear. Oropharynx with no redness, swelling, or masses, exudates, or evidence of obstruction, uvula midline. Mucous membranes moist. Neck: Trachea midline, no thyromegaly or masses palpated, and no cervical lymphadenopathy. Supple, full range of motion without nuchal rigidity, or vertebral point tenderness. No Meningismus. Chest/axilla: Normal chest wall appearance and motion. Nontender with no deformity. No lesions are appreciated. Cardiovascular: Regular rate and rhythm with a normal S1 and S2. No gallops, murmurs, or rubs. Normal PMI, no JVD. No pulse deficits. 19:22 Respiratory: the patient does not display signs of respiratory distress, Respirations: normal, Breath sounds: bronchial sounds, that are moderate, are heard diffusely, bronchitic cough. Vital Signs: 14:13 BP 92 / 70; Pulse 115; Resp 18; Temp 101.9; Pulse Ox 99% ; Weight 60.78 kg; Height 5 ll1 ft. 3 in. (160.02 cm); Pain 10/10; 14:13 Body Mass Index 23.74 (60.78 kg, 160.02 cm) ll1 MDM: 14:25 Patient medically screened. snw 19:21 Data reviewed: vital signs, nurses notes. Data interpreted: Pulse oximetry: on room air snw is 99 %. Interpretation: normal. Counseling: I had a detailed discussion with the patient and/or guardian regarding: the historical points, exam findings, and any diagnostic results supporting the discharge/admit diagnosis, lab results, the need for outpatient follow up, for definitive care, to return to the emergency department if symptoms worsen or persist or if there are any questions or concerns that arise at home. Special discussion: Based on the history and exam findings, there is no indication for further emergent testing or inpatient evaluation. I discussed with the patient/guardian the need to see the primary care provider for further evaluation of the symptoms. 19:21 Response to treatment: There is no appreciated change of the patient's symptoms at this snw time. 10/04 14:23 Order name: COVID-19/FLU A+B/RSV (Document "Date of Onset" if Symptomatic); Complete iw Time: 15:37 Administered Medications: 14:38 Drug: Motrin (ibuprofen) 600 mg Route: PO; iw Disposition Summary: 10/04/22 15:37 Discharge Ordered Location: Home snw Condition: Stable snw Diagnosis - Influenza due to identified novel influenza A virus snw Followup: snw - With: Emergency Department - When: As needed - Reason: Worsening of condition Followup: snw - With: Private Physician - When: 2 - 3 days - Reason: Recheck today's complaints, Continuance of care, Re-evaluation by your physician Discharge Instructions: - Discharge Summary Sheet snw - Fever, Adult snw - Influenza, Adult, [id number] snw Forms: - Medication Reconciliation Form snw - Thank You Letter snw - Antibiotic Education snw - Prescription Opioid Use snw Prescriptions: - Zyrtec 10 mg Oral Tablet - take 1 tablet by ORAL route once daily As needed; 20 tablet; Refills: 0, snw Product Selection Permitted - Tessalon Perles 100 mg Oral Capsule - take 1 capsule by ORAL route every 8 hours As needed; 15 capsule; Refills: 0, snw Product Selection Permitted - Pepcid 20 mg Oral Tablet - take 1 tablet by ORAL route once daily; 20 tablet; Refills: 0, Product snw Selection Permitted Signatures: Dispatcher [employer] EDMS RagsdaleYa, SQL DEVELOPER-C SQL DEVELOPER-Csnw Altagracia Weathers RN RN iw Geovanny Enriquez RN RN ll1 Corrections: (The following items were deleted from the chart) 19:24 19:22 Constitutional: This is a well developed, well nourished patient who is awake, snw alert, and in no acute distress. Head/Face: Normocephalic, atraumatic. Eyes: Pupils equal round and reactive to light, extra-ocular motions intact. Lids and lashes normal. Conjunctiva and sclera are non-icteric and not injected. Cornea within normal limits. Periorbital areas with no swelling, redness, or edema. ENT: Nares patent. No nasal discharge, no septal abnormalities noted. Tympanic membranes are normal and external auditory canals are clear. Oropharynx with no redness, swelling, or masses, exudates, or evidence of obstruction, uvula midline. Mucous membranes moist. Neck: Trachea midline, no thyromegaly or masses palpated, and no cervical lymphadenopathy. Supple, full range of motion without nuchal rigidity, or vertebral point tenderness. No Meningismus. Chest/axilla: Normal chest wall appearance and motion. Nontender with no deformity. No lesions are appreciated. Cardiovascular: Regular rate and rhythm with a normal S1 and S2. No gallops, murmurs, or rubs. Normal PMI, no JVD. No pulse deficits. snw
[2022-10-04 17:01] VITALS: BP 92/70; TEMP 101.9; O2SAT 99
== END 2022-10-04 16:34 | disposition home or self-care (01) ==
LOC: ER 14:06
DX: J10.1 Influenza due to other identified influenza virus with other respiratory manifestations (principal); F17.210 Nicotine dependence, cigarettes, uncomplicated; Z20.822 Contact with and (suspected) exposure to COVID-19
CPT/HCPCS: 0241U; 99282

== ENCOUNTER 2022-10-10 22:07 | Emergency (ER) | payer SELFPAY ==
--- OUTSIDE RECORDS SUMMARY | 2022-10-10 22:11 | XMS REPORT | Continuity of Care Document ---
:2000 Author Organization [facility] t Address [address] [place] [address] [address] [place] [address] Care Team Providers Name Role Phone Shield [...] ID 2020-03-30 2020-03-30 Outpatient [facility] [id number] [place] 11:13:00 11:13:00 [facility] Results This patient has no known results.
--- NOTE | 2022-10-10 23:13 | RAD REPORT ---
EXAM DESCRIPTION: RAD - Chest Single View - 10/10/2022 10:55 pm CLINICAL HISTORY: Congestion TECHNIQUE: AP portable chest image was obtained 10/10/2022 10:55 pm . FINDINGS: No dense consolidation seen. Patchy bibasilar lung base opacification is present slightly worse on the left. No peribronchial thickening or abnormal perihilar interstitial thickening. Heart and vasculature are normal. No measurable pleural effusion and no pneumothorax. No acute bony abnormality seen. No acute aortic findings suspected. IMPRESSION: Patchy bilateral lung base infiltrates.
[2022-10-10] MEDS ORDERED: PROMETHAZINE INJ 25 MG/ML AMP ONE (23:17)
[2022-10-10] MEDS ORDERED: dexAMETHasone 10 MG/ML VIAL ONE (23:17)
--- NOTE | 2022-10-10 23:18 | EDPHYS ---
Physician Documentation [facility] Name: Arlet Cannon Age: 22 yrs Sex: Female : 2000 Arrival Date: 10/10/2022 Time: 22:12 Bed 15 Private MD: ED Physician Isaías Roman HPI: 10/10 23:13 This 22 yrs old Female presents to ER via Ambulatory with complaints of snw Nausea/Vomiting/Diarrhea, Cough, Congestion, Dizziness, Fainting. 23:13 The patient presents to the emergency department with nausea, vomiting, diarrhea, flu snw symptoms. Onset: The symptoms/episode began/occurred suddenly, 3 day(s) ago, and became persistent. Possible causes: influenza. The symptoms are aggravated by nothing. Severity of symptoms: At their worst the symptoms were moderate. It is unknown whether or not the patient has had similar symptoms in the past. last week, dx with influenza A. Historical: - Allergies: 22:38 No Known Allergies; kl - Home Meds: 22:38 None [Active]; kl - PMHx: 22:38 None; kl - Immunization history:: Adult Immunizations not up to date. - Social history:: Smoking status: Reported history of juuling and/or vaping. ROS: 23:12 Constitutional: Negative for fever, chills, and weight loss, Eyes: Negative for injury, snw pain, redness, and discharge. 23:12 Neck: Negative for injury, pain, and swelling, Cardiovascular: Negative for chest pain, palpitations, and edema, Respiratory: Negative for shortness of breath, cough, wheezing, and pleuritic chest pain. 23:12 Back: Negative for injury and pain, MS/Extremity: Negative for injury and deformity, Skin: Negative for injury, rash, and discoloration, Neuro: Negative for headache, weakness, numbness, tingling, and seizure. 23:12 ENT: Positive for hoarseness, sinus congestion. 23:12 Abdomen/GI: Positive for nausea and vomiting. Exam: 23:09 Constitutional: This is a well developed, well nourished patient who is awake, alert, snw and in no acute distress. Head/Face: Normocephalic, atraumatic. Eyes: Pupils equal round and reactive to light, extra-ocular motions intact. Lids and lashes normal. Conjunctiva and sclera are non-icteric and not injected. Cornea within normal limits. Periorbital areas with no swelling, redness, or edema. 23:09 Neck: Trachea midline, no thyromegaly or masses palpated, and no cervical lymphadenopathy. Supple, full range of motion without nuchal rigidity, or vertebral point tenderness. No Meningismus. Chest/axilla: Normal chest wall appearance and motion. Nontender with no deformity. No lesions are appreciated. Cardiovascular: Regular rate and rhythm with a normal S1 and S2. No gallops, murmurs, or rubs. Normal PMI, no JVD. No pulse deficits. 23:09 Abdomen/GI: Soft, non-tender, with normal bowel sounds. No distension or tympany. No guarding or rebound. No evidence of tenderness throughout. Back: No spinal tenderness. No costovertebral tenderness. Full range of motion. Skin: Warm, dry with normal turgor. Normal color with no rashes, no lesions, and no evidence of cellulitis. MS/ Extremity: Pulses equal, no cyanosis. Neurovascular intact. Full, normal range of motion. Neuro: Awake and alert, GCS 15, oriented to person, place, time, and situation. Cranial nerves II-XII grossly intact. Motor strength 5/5 in all extremities. Sensory grossly intact. Cerebellar exam normal. Normal gait. 23:09 ENT: TM's: are normal, Nose: is normal, Mouth: is normal, Voice: is hoarse. 23:09 Respiratory: the patient does not display signs of respiratory distress, Respirations: normal, Breath sounds: are clear throughout. Vital Signs: 22:36 BP 103 / 71; Pulse 78; Resp 20; Temp 97.7; Pulse Ox 100% ; Weight 61.23 kg (R); Height kl 5 ft. 3 in. (160.02 cm); Pain 0/10; 22:36 Body Mass Index 23.91 (61.23 kg, 160.02 cm) kl MDM: 22:32 Patient medically screened. snw 23:19 Data reviewed: vital signs, nurses notes. Data interpreted: Pulse oximetry: on room air snw is 100 %. Interpretation: normal. Special discussion: Based on the history and exam findings, there is no indication for further emergent testing or inpatient evaluation. I discussed with the patient/guardian the need to see the primary care provider for further evaluation of the symptoms. ED course: no oxygen requirement, post viral pneumonia. 10/10 22:19 Order name: Chest Single View XRAY; Complete Time: 23:16 snw Administered Medications: 23:29 Drug: Decadron (dexamethasone) 10 mg {Note: given po.} Route: IM; Site: Other; jb4 10/11 00:06 Follow up: Response: No adverse reaction [facility] 10/10 23:29 Drug: Zithromax (azithromycin) 500 mg Route: PO; jb4 10/11 00:05 Follow up: Response: No adverse reaction [facility] 10/10 23:44 Drug: Phenergan (promethazine) 25 mg Route: IM; Site: left gluteus; 4 10/11 00:05 Follow up: Response: No adverse reaction 4 10/10 23:44 Drug: Rocephin (cefTRIAXone) 1 grams Route: IM; Site: right gluteus; 4 10/11 00:05 Follow up: Response: No adverse reaction [facility] Disposition: 02:57 Co-signature as Attending Physician, Isaías Roman MD I agree with the assessment and rt plan of care. Disposition Summary: 10/10/22 23:18 Discharge Ordered Location: Home snw Condition: Stable snw Diagnosis - Pneumonia, unspecified organism snw Followup: snw - With: Emergency Department - When: As needed - Reason: Worsening of condition Followup: snw - With: Private Physician - When: 2 - 3 days - Reason: Recheck today's complaints, Continuance of care, Re-evaluation by your physician Discharge Instructions: - Discharge Summary Sheet snw - Community-Acquired Pneumonia, Adult snw - Steps to Quit Smoking snw - Health Risks of Smoking snw - Cough, Adult snw Forms: - Medication Reconciliation Form snw - Thank You Letter snw - Antibiotic Education snw - Prescription Opioid Use snw Prescriptions: - promethazine 25 mg Oral Tablet - take 1 tablet by ORAL route every 6 hours As needed; 20 tablet; Refills: 0, snw Product Selection Permitted - Zithromax 500 mg Oral Tablet - take 1 tablet by ORAL route once daily for 5 days; 5 tablet; Refills: 0, snw Product Selection Permitted Signatures: Dispatcher [facility] Ashley Strickland RN RN kl Waters, Shelly, MOTEL FOOD SERVICE SUPERVISOR-C MOTEL FOOD SERVICE SUPERVISOR-[address] Sepulveda RN RN jb4 Isaías Roman MD MD rt Corrections: (The following items were deleted from the chart) 10/10 22:39 22:38 PSHx: Nasal sx; dayne oscar
--- NOTE | 2022-10-10 23:18 | ER ---
Nurse's Notes [facility] Name: Arlet Cannon Age: 22 yrs Sex: Female : 2000 Arrival Date: 10/10/2022 Time: 22:12 Bed 15 Private MD: Diagnosis: Pneumonia, unspecified organism Presentation: 10/10 22:36 Chief complaint: Patient states: vomiting diarrhea x 3 days flu last week. Coronavirus kl screen: Vaccine status: Patient reports receiving the 2nd dose of the covid vaccine. Ebola Screen: Patient negative for fever greater than or equal to 101.5 degrees Fahrenheit, and additional compatible Ebola Virus Disease symptoms. Initial Sepsis Screen: Does the patient meet any 2 criteria? No. Patient's initial sepsis screen is negative. Does the patient have a suspected source of infection? No. Patient's initial sepsis screen is negative. Risk Assessment: Do you want to hurt yourself or someone else? Patient reports no desire to harm self or others. 22:36 Method Of Arrival: Ambulatory kl 22:36 Acuity: KARLA 4 kl Triage Assessment: 22:39 General: Appears in no apparent distress. comfortable, Behavior is calm, cooperative. kl Pain:. EENT: hoarse voice . GI: Reports diarrhea, intolerance of fluids, intolerance of food, nausea. Historical: - Allergies: 22:38 No Known Allergies; kl - Home Meds: 22:38 None [Active]; kl - PMHx: 22:38 None; kl - Immunization history:: Adult Immunizations not up to date. - Social history:: Smoking status: Reported history of juuling and/or vaping. Screenin:45 Abuse screen: Denies threats or abuse. Nutritional screening: No deficits noted. jb4 Tuberculosis screening: No symptoms or risk factors identified. Fall Risk None identified. Assessment: 22:45 General: Appears in no apparent distress. comfortable, Behavior is calm, cooperative, jb4 appropriate for age. Pain: Denies pain. Neuro: Level of Consciousness is awake, alert, obeys commands, Oriented to person, place, time, situation. Cardiovascular: Patient's skin is warm and dry. Respiratory: Airway is patent Respiratory effort is even, unlabored, Respiratory pattern is regular, symmetrical. GI: Abdomen is flat, non-distended. : No signs and/or symptoms were reported regarding the genitourinary system. EENT: Throat is clear with gag reflex present. Derm: Skin is intact, Skin is pink, warm \T\ dry. 23:43 Reassessment: D/c pending shot time. jb4 Vital Signs: 22:36 BP 103 / 71; Pulse 78; Resp 20; Temp 97.7; Pulse Ox 100% ; Weight 61.23 kg (R); Height kl 5 ft. 3 in. (160.02 cm); Pain 0/10; 22:36 Body Mass Index 23.91 (61.23 kg, 160.02 cm) ED Course: 22:12 Patient arrived in ED. dt4 22:18 Ya Ragsdale FNP-C [facility] snw 22:18 Isaías Roman MD is Attending Physician. snw 22:38 Triage completed. kl 22:45 Patient has correct armband on for positive identification. Bed in low position. Call jb4 light in reach. Side rails up X 1. 22:45 No provider procedures requiring assistance completed. Patient did not have IV access jb4 during this emergency room visit. 22:57 Chest Single View XRAY In Process Unspecified. EDMS 23:23 Rd Sepulveda, RN is Primary Nurse. jb4 Administered Medications: 23:29 Drug: Decadron (dexamethasone) 10 mg {Note: given po.} Route: IM; Site: Other; jb4 10/11 00:06 Follow up: Response: No adverse reaction jb4 10/10 23:29 Drug: Zithromax (azithromycin) 500 mg Route: PO; jb4 10/11 00:05 Follow up: Response: No adverse reaction jb4 10/10 23:44 Drug: Phenergan (promethazine) 25 mg Route: IM; Site: left gluteus; jb4 10/11 00:05 Follow up: Response: No adverse reaction jb4 10/10 23:44 Drug: Rocephin (cefTRIAXone) 1 grams Route: IM; Site: right gluteus; jb4 10/11 00:05 Follow up: Response: No adverse reaction jb4 Outcome: 10/10 23:18 Discharge ordered by . nathaniel 10/11 00:06 Discharged to home ambulatory, with friend. jb4 Condition: stable Discharge instructions given to patient, Instructed on discharge instructions, follow up and referral plans. medication usage, Demonstrated understanding of instructions, follow-up care, medications, Prescriptions given X 2. 00:06 Patient left the ED. jb4 Signatures: Dispatcher [employer] EDAshley Love, Ya Del Toro RN, MANAGER SOLUTION-C MANAGER SOLUTION-[address] Rd Sepulveda RN RN jbIrene Blakely dt4 Corrections: (The following items were deleted from the chart) 10/10 22:39 22:38 PSHx: Nasal sx; dayne oscar 23:44 23:44 Phenergan (promethazine) 25 mg IM in left deltoid issa jbBear
[2022-10-10] MEDS ORDERED: AZITHROMYCIN 250 MG TAB ONE (23:21)
[2022-10-10] MEDS ORDERED: CEFTRIAXONE 1000 MG/VIAL ONE (23:21)
[2022-10-10] MEDS ORDERED: WATER FOR INJ,STERILE 10 ML ONE (23:22)
[2022-10-11 00:30] VITALS: BP 103/71; TEMP 97.7; O2SAT 100
== END 2022-10-11 00:06 | disposition home or self-care (01) ==
LOC: ER 22:07
DX: J18.9 Pneumonia, unspecified organism (principal)
CPT/HCPCS: 71045; 96372; 99283; J1100; J2550; Q0144

== ENCOUNTER 2023-03-30 17:09 | Emergency (ER) | payer OTHER ==
--- OUTSIDE RECORDS SUMMARY | 2023-03-30 17:11 | XMS REPORT | Continuity of Care Document ---
:2000 Author Organization [facility] t Address [address] [place] [address] [address] [place] [address] Care Team Providers Name Role Phone Shield [...] ID 2020-03-30 2020-03-30 Outpatient Shield MMG MMG [id number] [place] 11:13:00 11:13:00 [id number] Results This patient has no known results.
[2023-03-30] MEDS ORDERED: LIDOCAINE 1% MPF 5 ML VIAL ONE (17:51)
[2023-03-30] MEDS ORDERED: TRIAMCINOLONE ACETON 40 MG/ML VIAL ONE (17:51)
[2023-03-30 18:14] LABS: Specific Gravity 1.024 (1.005-1.030)
[2023-03-30 18:21] LABS: Specific Gravity 1.024 (1.005-1.030); Urine Bacteria 20-50 /HPF (<20); Urine Bilirubin NEGATIVE (Negative); Urine Blood Negative (Negative); Urine Clarity Extremely Turbid (Clear); Urine Color Yellow (Yellow); Urine Glucose NEGATIVE (Negative); Urine Protein 1+ (Negative); Urine RBC <5 /HPF (None Seen); Urine Urobilinogen Normal (Normal); Urine pH 8.5 (5.0-7.0)
--- NOTE | 2023-03-30 18:25 | ER ---
Nurse's Notes [facility] Name: Arlet Cannon Age: 22 yrs Sex: Female : 2000 Arrival Date: 03/30/2023 Time: 17:09 Bed 11 Private MD: Diagnosis: Unspecified symptoms and signs involving the musculoskeletal system;Upper back pain;UTI/ Urinary tract infection, site not specified Presentation: 03/30 17:33 Chief complaint: Patient states: pt was lifting a walker into back of truck and felt vg1 something pop and had a sudden onset of burning sensation to right side of back near shoulder. Stated took 4 Ibuprofen around noon time. Coronavirus screen: Vaccine status: Patient reports receiving the 2nd dose of the covid vaccine. Client denies travel out of the [place] in the last 14 days. Ebola Screen: Patient negative for fever greater than or equal to 101.5 degrees Fahrenheit, and additional compatible Ebola Virus Disease symptoms Patient denies exposure to infectious person. Patient denies travel to an Ebola-affected area in the 21 days before illness onset. Initial Sepsis Screen: Does the patient meet any 2 criteria? No. Patient's initial sepsis screen is negative. Does the patient have a suspected source of infection? No. Patient's initial sepsis screen is negative. Risk Assessment: Do you want to hurt yourself or someone else? Patient reports no desire to harm self or others. Onset of symptoms was March 30, 2023. 17:33 Method Of Arrival: Ambulatory vg1 17:33 Acuity: KARLA 4 vg1 Triage Assessment: 17:33 General: Appears in no apparent distress. uncomfortable, Behavior is calm, cooperative. vg1 Pain: Complains of pain in back Pain Pain began this morning. Musculoskeletal: Circulation, motion, and sensation intact. COMMODITIES MANAGER: 17:33 LMP 03/19/2023 vg1 Historical: - Allergies: 17:37 No Known Allergies; vg1 - Home Meds: 17:37 None [Active]; vg1 - Immunization history:: Client reports receiving the 2nd dose of the Covid vaccine. - Social history:: Smoking status: Reported history of juuling and/or vaping. Screenin:45 [facility] ED Fall Risk Assessment (Adult) History of falling in the last 3 months, kc6 including since admission No falls in past 3 months (0 pts) Confusion or Disorientation No (0 pts) Intoxicated or Sedated No (0 pts) Impaired Gait No (0 pts) Mobility Assist Device Used No (0 pt) Altered Elimination No (0 pt) Score/Fall Risk Level 0 - 2 = Low Risk Oriented to surroundings, Maintained a safe environment, Educated pt \T\ family on fall prevention, incl call for assistance when getting out of bed, Assessed \T\ reinforced patient's understanding of fall precautions, Hourly rounding (assess needs \T\ fall precautionary measures) done. Abuse screen: Denies threats or abuse. Denies injuries from another. Nutritional screening: No deficits noted. Tuberculosis screening: No symptoms or risk factors identified. Assessment: 17:45 General: Appears in no apparent distress. comfortable, Behavior is calm, cooperative, kc6 appropriate for age. Pain: Complains of pain in right subscapular area and back. Neuro: Serrato Agitation-Sedation Scale (RASS): 0 - Alert and Calm Level of Consciousness is awake, alert, obeys commands, Oriented to person, place, time, situation, Appropriate for age. Cardiovascular: Capillary refill < 3 seconds. Respiratory: Airway is patent Trachea midline Respiratory effort is even, unlabored, Respiratory pattern is regular, symmetrical. GI: No signs and/or symptoms were reported involving the gastrointestinal system. : No signs and/or symptoms were reported regarding the genitourinary system. EENT: No signs and/or symptoms were reported regarding the EENT system. Derm: No signs and/or symptoms reported regarding the dermatologic system. Skin is intact, Skin is pink, warm \T\ dry. Musculoskeletal: No signs and/or symptoms reported regarding the musculoskeletal system. Circulation, motion, and sensation intact. Capillary refill < 3 seconds, Range of motion: intact in all extremities. Vital Signs: 17:33 BP 120 / 75; Pulse 89; Resp 16; Temp 98.6(O); Pulse Ox 99% on R/A; Weight 65.77 kg; vg1 Height 5 ft. 3 in. ; Pain 9/10; 17:33 Body Mass Index 25.68 (65.77 kg, 160.02 cm) vg1 17:33 Pain Scale: Adult vg1 ED Course: 17:10 Patient arrived in ED. rg4 17:20 Ya Ragsdale [facility]NP-C [facility] snw 17:20 George Singh MD is Attending Physician. snw 17:33 Arm band placed on. vg1 17:37 Triage completed. vg1 17:40 Melva Pandey, RN is Primary Nurse. kc6 17:45 Patient has correct armband on for positive identification. Bed in low position. Call kc6 light in reach. Side rails up X 1. 18:40 No provider procedures requiring assistance completed. Patient did not have IV access kc6 during this emergency room visit. Administered Medications: 17:51 Drug: Triamcinolone Acetonide IM 40 mg {Note: to bedside.} Route: IM; Site: affected kc6 area; 18:25 Follow up: Response: No adverse reaction; Pain is decreased kc6 17:51 Drug: Lidocaine Infiltration (1 %) 5 mg {Note: to bedside.} Route: Infiltration; kc6 18:25 Follow up: Response: No adverse reaction; Pain is decreased kc6 18:29 Drug: Amoxicillin-Clavulanate PO 875 mg Route: PO; kc6 18:41 Follow up: Response: No adverse reaction kc6 Medication: 18:41 VIS not applicable for this client. kc6 Outcome: 18:25 Discharge ordered by MD. snw 18:40 Discharged to home ambulatory. kc6 18:40 Condition: improved 18:40 Discharge instructions given to patient, Instructed on discharge instructions, follow up and referral plans. medication usage, Demonstrated understanding of instructions, follow-up care, medications, Prescriptions given X 2. 18:41 Patient left the ED. kc6 Signatures: Ya Ragsdale, SHEILA-C WAREHOUSE OPERATOR-Nicole Nolasco rg4 Lyndsay Carranza RN RN vg1 Melva Pandey, RN RN kc6 Corrections: (The following items were deleted from the chart) 17:38 17:33 Chief complaint: Patient states: pt was lifting a walker into back of truck and vg1 felt something pop and had a sudden onset of burning sensation to right side of back near shoulder vg1 17:38 17:33 Pulse 89bpm; Resp 16bpm; Pulse Ox 99% RA; Temp 98.6F Oral; 65.77 kg; Height 5 ft. vg1 3 in.; BMI: 25.6; Pain 9/10, Adult; vg1
--- NOTE | 2023-03-30 18:25 | EDPHYS ---
Physician Documentation [facility] Name: Arlet Cannon Age: 22 yrs Sex: Female : 2000 Arrival Date: 03/30/2023 Time: 17:09 Bed 11 Private MD: ED Physician George Singh HPI: 03/30 18:09 This 22 yrs old Female presents to ER via Ambulatory with complaints of Back Injury. snw 18:09 The patient presents with pain that is acute. The symptoms are located in the right snw scapular area and right subscapular area. Onset: The symptoms/episode began/occurred suddenly. The pain does not radiate. Associated signs and symptoms: Pertinent positives: pain on deep inspiration. The problem was sustained when lifting from twisting. Severity of symptoms: At their worst the symptoms were moderate, severe, in the emergency department the symptoms have improved, mildly. The patient has not experienced similar symptoms in the past. It is unknown whether or not the patient has recently seen a physician. 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 - Social history:: Smoking status: Reported history of juuling and/or vaping. ROS: 18:09 Constitutional: Negative for fever, chills, and weight loss, Eyes: Negative for injury, snw pain, redness, and discharge, ENT: Negative for injury, pain, and discharge, Neck: Negative for injury, pain, and swelling, Cardiovascular: Negative for chest pain, palpitations, and edema, Respiratory: Negative for shortness of breath, cough, wheezing, and pleuritic chest pain, Abdomen/GI: Negative for abdominal pain, nausea, vomiting, diarrhea, and constipation, : Negative for injury, bleeding, discharge, and swelling, MS/Extremity: Negative for injury and deformity, Skin: Negative for injury, rash, and discoloration, Neuro: Negative for headache, weakness, numbness, tingling, and seizure, Psych: Negative for depression, anxiety, suicide ideation, homicidal ideation, and hallucinations. 18:09 Back: Positive for pain at rest, pain with movement, of the right scapular area and right subscapular area. Exam: 18:06 Constitutional: This is a well developed, well nourished patient who is awake, alert, snw and in no acute distress. Head/Face: Normocephalic, atraumatic. Eyes: Pupils equal round and reactive to light, extra-ocular motions intact. Lids and lashes normal. Conjunctiva and sclera are non-icteric and not injected. Cornea within normal limits. Periorbital areas with no swelling, redness, or edema. ENT: Nares patent. No nasal discharge, no septal abnormalities noted. Tympanic membranes are normal and external auditory canals are clear. Oropharynx with no redness, swelling, or masses, exudates, or evidence of obstruction, uvula midline. Mucous membranes moist. Neck: Trachea midline, no thyromegaly or masses palpated, and no cervical lymphadenopathy. Supple, full range of motion without nuchal rigidity, or vertebral point tenderness. No Meningismus. Chest/axilla: Normal chest wall appearance and motion. Nontender with no deformity. No lesions are appreciated. Cardiovascular: Regular rate and rhythm with a normal S1 and S2. No gallops, murmurs, or rubs. Normal PMI, no JVD. No pulse deficits. Respiratory: Lungs have equal breath sounds bilaterally, clear to auscultation and percussion. No rales, rhonchi or wheezes noted. No increased work of breathing, no retractions or nasal flaring. Abdomen/GI: Soft, non-tender, with normal bowel sounds. No distension or tympany. No guarding or rebound. No evidence of tenderness throughout. Skin: Warm, dry with normal turgor. Normal color with no rashes, no lesions, and no evidence of cellulitis. MS/ Extremity: Pulses equal, no cyanosis. Neurovascular intact. Full, normal range of motion. Neuro: Awake and alert, GCS 15, oriented to person, place, time, and situation. Cranial nerves II-XII grossly intact. Motor strength 5/5 in all extremities. Sensory grossly intact. Cerebellar exam normal. Normal gait. Psych: Awake, alert, with orientation to person, place and time. Behavior, mood, and affect are within normal limits. 18:06 Back: pain, that is moderate, of the right scapular area and right subscapular area. Vital Signs: 17:33 BP 120 / 75; Pulse 89; Resp 16; Temp 98.6(O); Pulse Ox 99% on R/A; Weight 65.77 kg; vg1 Height 5 ft. 3 in. ; Pain 9/10; 17:33 Body Mass Index 25.68 (65.77 kg, 160.02 cm) 1 17:33 Pain Scale: Adult vg1 Procedures: 18:07 Performed Trigger point injection to right trap - kenalog 40mg and Lidocaine 1.5ml IM, snw pt tolerated procedure well. MDM: 17:40 Patient medically screened. snw 18:12 Differential diagnosis: Fatigue Fracture Ligament Injury musculoskeletal pain. Data snw reviewed: vital signs, nurses notes, lab test result(s), urinalysis. I considered the following discharge prescriptions or medication management in the emergency department Medications were administered in the Emergency Department. See MAR. Counseling: I had a detailed discussion with the patient and/or guardian regarding: the historical points, exam findings, and any diagnostic results supporting the discharge/admit diagnosis, lab results, the need for outpatient follow up, for definitive care, to return to the emergency department if symptoms worsen or persist or if there are any questions or concerns that arise at home. Special discussion: Based on the history and exam findings, there is no indication for further emergent testing or inpatient evaluation. I discussed with the patient/guardian the need to see the primary care provider for further evaluation of the symptoms. 03/30 17:20 Order name: Urine W/Microscopic (UAM); Complete Time: 18:23 snw 03/30 17:20 Order name: PREGU; Complete Time: 18:15 snw Administered Medications: 17:51 Drug: Triamcinolone Acetonide IM 40 mg {Note: to bedside.} Route: IM; Site: affected kc6 area; 18:25 Follow up: Response: No adverse reaction; Pain is decreased kc6 17:51 Drug: Lidocaine Infiltration (1 %) 5 mg {Note: to bedside.} Route: Infiltration; kc6 18:25 Follow up: Response: No adverse reaction; Pain is decreased kc6 18:29 Drug: Amoxicillin-Clavulanate PO 875 mg Route: PO; kc6 18:41 Follow up: Response: No adverse reaction kc6 Disposition Summary: 03/30/23 18:25 Discharge Ordered Location: Home snw Condition: Stable snw Diagnosis - Unspecified symptoms and signs involving the musculoskeletal system snw - Upper back pain snw - UTI/ Urinary tract infection, site not specified snw Followup: snw - With: Emergency Department - When: As needed - Reason: Worsening of condition Followup: snw - With: Private Physician - When: 2 - 3 days - Reason: Recheck today's complaints, Continuance of care, Re-evaluation by your physician Discharge Instructions: - Discharge Summary Sheet snw - Acute Back Pain, Adult snw - Urinary Tract Infection, Adult snw - Rehydration, Adult snw - Back Injury Prevention snw Forms: - Medication Reconciliation Form snw - Thank You Letter snw - Antibiotic Education snw - Prescription Opioid Use snw Prescriptions: - Augmentin 875-125 mg Oral Tablet - take 1 tablet by ORAL route every 12 hours for 10 days; 20 tablet; Refills: 0, snw Product Selection Permitted - orphenadrine citrate 100 mg Oral Tablet Sustained Release - take 1 tablet by ORAL route 2 times per day As needed; 20 tablet; Refills: 0, snw Product Selection Permitted Signatures: Dispatcher [employer] Ya Taylor, BRAZER CONTROLLED ATMOSPHERIC FURNACE-C BRAZER CONTROLLED ATMOSPHERIC FURNACE-Csnw Lyndsay Carranza, RN RN vg1 Melva Pandey RN RN kc6
[2023-03-30] MEDS ORDERED: AMOX/K CLAV 875 MG TAB ONE (18:34)
[2023-03-30 18:48] VITALS: BP 120/75; TEMP 98.6; O2SAT 99
== END 2023-03-30 18:41 | disposition home or self-care (01) ==
LOC: ER 17:09
DX: R29.91 Unspecified symptoms and signs involving the musculoskeletal system (principal); N39.0 Urinary tract infection, site not specified
CPT/HCPCS: 81001; 81025; 96372; 99284; J3301; J2001

== ENCOUNTER 2023-05-10 07:19 | Emergency (ER) | payer OTHER, SELFPAY ==
--- OUTSIDE RECORDS SUMMARY | 2023-05-10 07:21 | XMS REPORT | Continuity of Care Document ---
:2000 Author Organization [facility] t Address [address] [place] [address] [address] [place] [address] Care Team Providers Name Role Phone Shield [...] ID 2020-03-30 2020-03-30 Outpatient Shield MMG [id number] [id number] [place] 11:13:00 11:13:00 [id number] Results This patient has no known results.
[2023-05-10] MEDS ORDERED: CEFTRIAXONE 500 MG/VIAL ONE (08:16)
[2023-05-10 08:30] LABS: Specific Gravity 1.032 (1.005-1.030)
--- NOTE | 2023-05-10 08:49 | EDPHYS ---
Physician Documentation [facility] Name: Arlet Cannon Age: 22 yrs Sex: Female : 2000 Arrival Date: 05/10/2023 Time: 07:19 Bed 13 Private MD: ED Physician George Singh HPI: 05/10 07:38 This 22 yrs old Female presents to ER via Ambulatory with complaints of STD bs3 Exposure, Swelling all over body, Sinus Congestion. 07:38 22-year-old female presents with multiple complaints she notes sinus congestion cough bs3 runny nose for approximately 2 weeks no fevers or chills no difficulty breathing or swallowing in addition she is concerned about an STI exposure nurse requesting treatment denies vaginal bleeding or discharge denies any chance she is sexually active with [facility]. 08:02 She also notes chronic joint pain for which she previously followed with Ortho but bs3 stopped following up due to insurance issues no difficulty ambulating no fevers or chills no chest pain shortness of breath. Historical: - Allergies: 07:31 No Known Allergies; cm10 - Home Meds: 07:31 None [Active]; cm10 - PMHx: 07:31 None; cm10 - PSHx: 07:31 None; cm10 - Immunization history:: Adult Immunizations unknown. - Social history:: Smoking status: unknown. ROS: 08:02 Constitutional: Negative for fever, chills bs3 08:02 All other systems are negative. Exam: 08:02 Constitutional: This is a well developed, well nourished patient who is awake, alert, bs3 and in no acute distress. Head/Face: Normocephalic, atraumatic. Eyes: Pupils equal round and reactive to light, extra-ocular motions intact. Lids and lashes normal. ENT: mmm, no posterior phyarngeal erythema Neck: Trachea midline, no thyromegaly, no neck stiffness Chest/axilla: Normal chest wall appearance and motion. Nontender with no deformity. No lesions are appreciated. Respiratory: Lungs have equal breath sounds bilaterally, clear to auscultation, no respiratory distress Skin: Warm, dry with normal turgor. Normal color with no rashes, no lesions, and no evidence of cellulitis. MS/ Extremity: Pulses equal, no cyanosis. Neurovascular intact. Full, normal range of motion. Neuro: Awake and alert, GCS 15, oriented to person, place, time, and situation. Cranial nerves II-XII grossly intact. Motor strength 5/5 in all extremities. Sensory grossly intact. Psych: Awake, alert, with orientation to person, place and time. Behavior, mood, and affect are within normal limits. Vital Signs: 07:29 BP 130 / 65; Pulse 86; Resp 16; Temp 98.4; Pulse Ox 100% on R/A; Weight 61.23 kg; cm10 Height 5 ft. 3 in. ; 08:28 BP 121 / 80; Pulse 56; Resp 18 S; Pulse Ox 100% on R/A; kc6 07:29 Body Mass Index 23.91 (61.23 kg, 160.02 cm) cm10 MDM: 07:23 Patient medically screened. bs3 08:02 Data reviewed: vital signs, nurses notes. ED course: will tx for possible sti, advised bs3 outpatient f/u for full sti panel. . 08:48 ED course: negative will discharge home. bs3 05/10 07:38 Order name: Test, Urine; Complete Time: 08:48 bs3 Administered Medications: 08:15 Drug: Rocephin (cefTRIAXone) IM 500 mg Route: IM; Site: right deltoid; [facility] 08:33 Follow up: Response: No adverse reaction kc6 Disposition Summary: 05/10/23 08:48 Discharge Ordered Location: Home bs3 Problem: new bs3 Symptoms: have improved bs3 Condition: Stable bs3 Diagnosis - Other specified predominantly sexually transmitted diseases bs3 - Acute frontal sinusitis, unspecified bs3 Followup: bs3 - With: Private Physician - When: 1 week - Reason: Re-evaluation by your physician Discharge Instructions: - Discharge Summary Sheet bs3 - Gonorrhea bs3 - Sinusitis, Adult bs3 Forms: - Medication Reconciliation Form bs3 - Thank You Letter bs3 - Antibiotic Education bs3 - Prescription Opioid Use bs3 Prescriptions: - Flonase Allergy Relief 50 mcg/actuation Nasal spray, suspension - spray 1 spray by INTRANASAL route every 12 hours for 7 days as needed for nasal bs3 congestion; administer into each nostril; 1 Applicator; Refills: 0, Product Selection Permitted - Doxycycline Hyclate 100 mg Oral Tablet - take 1 tablet by ORAL route every 12 hours for 7 days; 14 tablet; Refills: 0, bs3 Product Selection Permitted Signatures: Dispatcher [employer] Melva Zamorano, RN RN kc6 George Singh MD MD bs3 Mili Forrester RN RN cm10
--- NOTE | 2023-05-10 08:49 | ER ---
Nurse's Notes [facility] Name: Arlet Cannon Age: 22 yrs Sex: Female : 2000 Arrival Date: 05/10/2023 Time: 07:19 Bed 13 Private MD: Diagnosis: Other specified predominantly sexually transmitted diseases;Acute frontal sinusitis, unspecified Presentation: 05/10 07:29 Chief complaint: Patient states: Patient reports body swelling onset last night. cm10 patient states that her knees, elbow and lower back are swollen. Patient also reports that her boyfriend was diagnosed with gonorrhea yesterday so she has been exposed. Patient also reports that she has a sinus infection. Coronavirus screen: Vaccine status: Patient reports receiving the 2nd dose of the covid vaccine. Client denies travel out of the [place] in the last 14 days. At this time, the client does not indicate any symptoms associated with coronavirus-19. Ebola Screen: No symptoms or risks identified at this time. Initial Sepsis Screen: Does the patient meet any 2 criteria? No. Patient's initial sepsis screen is negative. Does the patient have a suspected source of infection? No. Patient's initial sepsis screen is negative. Risk Assessment: Do you want to hurt yourself or someone else? Patient reports no desire to harm self or others. Onset of symptoms was May 10, 2023. 07:29 Method Of Arrival: Ambulatory 10 07:29 Acuity: KARLA 3 cm10 Triage Assessment: 07:32 General: Appears in no apparent distress. comfortable, Behavior is calm, cooperative. cm10 Neuro: No deficits noted. Level of Consciousness is awake, alert, obeys commands, Oriented to person, place, time, situation. Historical: - Allergies: 07:31 No Known Allergies; cm10 - Home Meds: 07:31 None [Active]; cm10 - PMHx: 07:31 None; cm10 - PSHx: 07:31 None; cm10 - Immunization history:: Adult Immunizations unknown. - Social history:: Smoking status: unknown. Screenin:25 [facility] ED Fall Risk Assessment (Adult) History of falling in the last 3 months, kc6 including since admission No falls in past 3 months (0 pts) Confusion or Disorientation No (0 pts) Intoxicated or Sedated No (0 pts) Impaired Gait No (0 pts) Mobility Assist Device Used No (0 pt) Altered Elimination No (0 pt) Score/Fall Risk Level 0 - 2 = Low Risk Oriented to surroundings, Maintained a safe environment, Educated pt \T\ family on fall prevention, incl call for assistance when getting out of bed, Assessed \T\ reinforced patient's understanding of fall precautions, Hourly rounding (assess needs \T\ fall precautionary measures) done. Abuse screen: Denies threats or abuse. Denies injuries from another. Nutritional screening: No deficits noted. Tuberculosis screening: No symptoms or risk factors identified. Assessment: 07:40 General: Appears in no apparent distress. comfortable, Behavior is calm, cooperative, kc6 appropriate for age. Pain: Complains of pain in back, right knee and left knee Pain does not radiate. Pain currently is 9 out of 10 on a pain scale. Quality of pain is described as aching, dull. Neuro: Level of Consciousness is awake, alert, obeys commands, Oriented to person, place, time, situation, Appropriate for age. Cardiovascular: Capillary refill < 3 seconds. Respiratory: Airway is patent Trachea midline Respiratory effort is even, unlabored, Respiratory pattern is regular, symmetrical. GI: Reports nausea, vomiting, Patient currently denies diarrhea. : No signs and/or symptoms were reported regarding the genitourinary system. EENT: No signs and/or symptoms were reported regarding the EENT system. Derm: No signs and/or symptoms reported regarding the dermatologic system. Skin is intact, Skin is pink, warm \T\ dry. Musculoskeletal: No signs and/or symptoms reported regarding the musculoskeletal system. Circulation, motion, and sensation intact. Capillary refill < 3 seconds, Range of motion: intact in all extremities. 08:15 Reassessment: Patient appears in no apparent distress at this time. No changes from kc6 previously documented assessment. Patient and/or family updated on plan of care and expected duration. Pain level reassessed. Patient is alert, oriented x 3, equal unlabored respirations, skin warm/dry/pink. Vital Signs: 07:29 BP 130 / 65; Pulse 86; Resp 16; Temp 98.4; Pulse Ox 100% on R/A; Weight 61.23 kg; cm10 Height 5 ft. 3 in. ; 08:28 BP 121 / 80; Pulse 56; Resp 18 S; Pulse Ox 100% on R/A; kc6 07:29 Body Mass Index 23.91 (61.23 kg, 160.02 cm) cm10 ED Course: 07:22 Patient arrived in ED. im 07:23 George Singh MD is Attending Physician. bs3 07:25 Melva Pandey RN is Primary Nurse. kc6 07:25 Patient has correct armband on for positive identification. Bed in low position. Call kc6 light in reach. Side rails up X 1. 07:31 Triage completed. cm10 07:32 Arm band placed on Patient placed in an exam room, on a stretcher. cm10 07:52 Door closed. Noise minimized. Lights dimmed. Warm blanket given. PO fluids given. kc6 08:53 No provider procedures requiring assistance completed. Patient did not have IV access kc6 during this emergency room visit. Administered Medications: 08:15 Drug: Rocephin (cefTRIAXone) IM 500 mg Route: IM; Site: right deltoid; kc6 08:33 Follow up: Response: No adverse reaction kc6 Medication: 08:53 VIS not applicable for this client. kc6 Outcome: 08:48 Discharge ordered by . bs3 08:53 Discharged to home ambulatory. kc6 08:53 Condition: stable 08:53 Discharge instructions given to patient, Instructed on discharge instructions, follow up and referral plans. medication usage, safe sex practices, Demonstrated understanding of instructions, follow-up care, medications, Prescriptions given X 2. 08:54 Patient left the ED. kc6 Signatures: Melva Pandey RN RN kc6 George Singh MD MD bs3 Leti Oliva Clarissa RN RN cm10 Corrections: (The following items were deleted from the chart) 07:38 07:29 BP 130 / 65; Pulse 86bpm; Resp 16bpm; Pulse Ox 100% RA; Temp 98.4F; cm10 cm10
[2023-05-10 09:00] VITALS: TEMP 98.4; O2SAT 100
[2023-05-10 09:01] VITALS: BP 121/80
== END 2023-05-10 08:54 | disposition home or self-care (01) ==
LOC: ER 07:19
DX: A63.8 Other specified predominantly sexually transmitted diseases (principal); J01.10 Acute frontal sinusitis, unspecified
CPT/HCPCS: 81025; 96372; 99284

== ENCOUNTER 2023-07-12 10:51 | Emergency (ER) | payer SELFPAY ==
--- OUTSIDE RECORDS SUMMARY | 2023-07-12 11:05 | XMS REPORT | Continuity of Care Document ---
:2000 Author Organization [facility] t Address [address] [place] [address] [address] [place] [address] Care Team Providers Name Role Phone Shield [...] ID 2020-03-30 2020-03-30 Outpatient Shield MMG MMG [id number] [place] 11:13:00 11:13:00 0[facility] Results This patient has no known results.
[2023-07-12] MEDS ORDERED: ONDANSETRON 4 MG/2 ML VIAL ONE (11:30)
[2023-07-12] MEDS ORDERED: KETOROLAC 30 MG/ML INJ ONE (11:30)
[2023-07-12] MEDS ORDERED: NA CHLORIDE 0.9% 1,000 ML ONE (11:30)
[2023-07-12 11:34] LABS: Absolute Lymphocytes (CBC) 1.3 K/uL (0.7-4.9); Lymphocytes % 14.6 % (15.3-44.8); MCV 90.8 fL (80-100); MPV 8.2 fL (7.6-11.3); Platelets 246 thou/uL (152-406); RBC Red Blood Cell Count 4.52 M/uL (3.86-4.86)
[2023-07-12 11:59] LABS: ALT/SGPT 18 U/L (13-56); AST/SGOT 8 U/L (15-37); Albumin 4.3 g/dL (3.4-5.0); Alkaline Phosphatase 57 U/L (45-117); BUN Blood Urea Nitrogen 11 mg/dL (7-18); Bicarbonate 28 mEq/L (21-32); Bilirubin Direct 0.2 mg/dL (0-0.2); Bilirubin Indirect, Calculated 0.2 mg/dL (0.2-0.8); Bilirubin Total 0.4 mg/dL (0.2-1.0); Creatine Phosphokinase 117 U/L (26-192); Glomerular Filtration Rate 104 ml/min (=/>90); Glucose Level 78 mg/dL (74-106); Magnesium 1.9 mg/dL (1.6-2.4); Potassium 3.7 mEq/L (3.5-5.1); Sodium Level 141 mEq/L (136-145)
[2023-07-12 12:00] LABS: Troponin High Sensitivity < 3.0 pg/mL (<58.9)
--- NOTE | 2023-07-12 12:01 | RAD REPORT ---
EXAM DESCRIPTION: CT - [id number] - 07/12/2023 11:43 am CLINICAL HISTORY: TRAUMA COMPARISON: No comparisons TECHNIQUE: Axial thin cut noncontrast CT images of the head were obtained. Axial thin cut noncontrast CT images of the cervical spine were obtained. Multiplanar reformatted images were generated and reviewed. All CT scans are performed using dose optimization technique as appropriate and may include automated exposure control or mA/KV adjustment according to patient size. FINDINGS: CT HEAD WITHOUT CONTRAST: No acute hemorrhage, hydrocephalus or extra-axial collection is identified.No areas of brain edema or midline shift. The paranasal sinuses and mastoids are clear.The calvarium is intact. CT CERVICAL SPINE WITHOUT CONTRAST: No fracture or subluxation.No prevertebral soft tissues swelling is identified. IMPRESSION: No acute traumatic intracranial or cervical spine findings.
--- NOTE | 2023-07-12 12:04 | RAD REPORT ---
EXAM DESCRIPTION: RADChest Single View07/12/2023 11:56 am CLINICAL HISTORY: syncope COMPARISON: Chest Single View dated 10/10/2022 TECHNIQUE: Portable AP view of the chest. FINDINGS: The lungs are clear. No pneumothorax or effusion. The cardiomediastinal contours are unrem arkable. IMPRESSION: No acute cardiopulmonary process.
--- NOTE | 2023-07-12 12:07 | RAD REPORT ---
EXAM DESCRIPTION: CT - CTFB CLINICAL HISTORY: TRAUMA COMPARISON: Head C Spine Mpr Wo Con dated 07/12/2023 TECHNIQUE: Axial thin cut noncontrast CT images of the face were obtained with sagittal and coronal reconstruction images. All CT scans are performed using dose optimization technique as appropriate and may include automated exposure control or mA/KV adjustment according to patient size. FINDINGS: Mildly displaced bilateral nasal bone fractures, with mild comminution and more displaceme nt on the right. No other acute facial bone fracture is seen.The mandible is intact. The globes and orbital contents are grossly unremarkable.The paranasal sinuses and mastoids are clear . IMPRESSION: Mildly displaced bilateral nasal bone fractures as above.
--- NOTE | 2023-07-12 12:17 | EDPHYS ---
Physician Documentation [facility] Name: Arlet Cannon Age: 22 yrs Sex: Female : 2000 Arrival Date: 07/12/2023 Time: 10:51 Bed 8 Private MD: ED Physician Isaías Roman HPI: 07/12 11:35 This 22 yrs old Female presents to ER via Ambulatory with complaints of Passed Out rt Prior To Arrival, Nose Pain. 11:35 Patient presents to the ED with a syncopal event that occurred last night. Patient was rt cooking when this happened. She became acutely lightheaded, then had a syncopal event, states that she was not unconscious for a long period of time. She states that she did hit her face and did have bleeding to the nose at that time as well as a jaw pain. Patient denies other acute complaints at this time. Symptoms are moderate in severity, no other aggravating or alleviating factors.. 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 - Social history:: Smoking status: Patient denies any tobacco usage or history of. Patient/guardian denies using alcohol. - Family history:: not pertinent. ROS: 11:35 Constitutional: Negative for fever, chills, and weight loss, Neck: Negative for injury, rt pain, and swelling, Cardiovascular: Negative for chest pain, palpitations, and edema, Respiratory: Negative for shortness of breath, cough, wheezing, and pleuritic chest pain, MS/Extremity: Negative for injury and deformity, Skin: Negative for injury, rash, and discoloration, Psych: Negative for depression, anxiety, suicide ideation, homicidal ideation, and hallucinations. 11:35 ENT: Positive for Epistaxis, pain to nose. 11:35 Abdomen/GI: Positive for nausea, Negative for abdominal pain, vomiting. 11:35 Neuro: Positive for headache, syncope. Exam: 11:35 Constitutional: This is a well developed, well nourished patient who is awake, alert, rt and in no acute distress. Head/Face: Normocephalic, atraumatic. Neck: Trachea midline, no thyromegaly or masses palpated, and no cervical lymphadenopathy. Supple, full range of motion without nuchal rigidity, or vertebral point tenderness. No Meningismus. Chest/axilla: Normal chest wall appearance and motion. Nontender with no deformity. No lesions are appreciated. Cardiovascular: Regular rate and rhythm with a normal S1 and S2. No gallops, murmurs, or rubs. Normal PMI, no JVD. No pulse deficits. Respiratory: Lungs have equal breath sounds bilaterally, clear to auscultation and percussion. No rales, rhonchi or wheezes noted. No increased work of breathing, no retractions or nasal flaring. Abdomen/GI: Soft, non-tender, with normal bowel sounds. No distension or tympany. No guarding or rebound. No evidence of tenderness throughout. Skin: Warm, dry with normal turgor. Normal color with no rashes, no lesions, and no evidence of cellulitis. MS/ Extremity: Pulses equal, no cyanosis. Neurovascular intact. Full, normal range of motion. Neuro: Awake and alert, GCS 15, oriented to person, place, time, and situation. Cranial nerves II-XII grossly intact. Motor strength 5/5 in all extremities. Sensory grossly intact. Cerebellar exam normal. Normal gait. Psych: Awake, alert, with orientation to person, place and time. Behavior, mood, and affect are within normal limits. 11:35 ENT: Bruising noted to the bridge of the nose, no nasal septal hematoma, chipped teeth noted, no loose teeth, very small laceration to the inner lower lip, no active bleeding.. 11:35 ECG was reviewed by the Attending Physician. Vital Signs: 11:10 BP 139 / 78; Pulse 75; Resp 14; Temp 98.4(O); Pulse Ox 100% on R/A; Weight 57 kg; ld1 Height 5 ft. 4 in. ; Pain 6/10; 11:50 BP 115 / 63; Pulse 73; Pulse Ox 99% on R/A; ap3 12:22 BP 118 / 63; Pulse 71; Resp 18; Pulse Ox 100% on R/A; ld1 11:10 Body Mass Index 21.57 (57.00 kg, 162.56 cm) ld1 11:10 Pain Scale: Adult ld1 MDM: 11:01 Patient medically screened. rt 12:17 Differential Diagnosis: Dysrhythmia, vasovagal syncope, anemia. Data reviewed: vital rt signs, nurses notes. I considered the following discharge prescriptions or medication management in the emergency department Medications were administered in the Emergency Department. See MAR. Independent interpretation of the following test(s) in the Emergency Department CT Scan: My interpretation is No intracranial hemorrhage seen on interpretation of the CT scan images. Counseling: I had a detailed discussion with the patient and/or guardian regarding the historical points, exam findings, and any diagnostic results supporting the discharge/admit diagnosis, lab results, radiology results, the need for outpatient follow up, to return to the emergency department if symptoms worsen or persist or if there are any questions or concerns that arise at home. Response to treatment: the patient's symptoms have markedly improved after treatment. 07/12 11:10 Order name: Basic Metabolic Panel; Complete Time: 12:10 rt 07/12 11:10 Order name: CBC with Diff; Complete Time: 12:10 rt 07/12 11:10 Order name: LFT's; Complete Time: 12:10 rt 07/12 11:10 Order name: Magnesium; Complete Time: 12:10 rt 07/12 11:10 Order name: Troponin HS; Complete Time: 12:10 rt 07/12 11:10 Order name: Test, Serum; Complete Time: 12:10 rt 07/12 11:10 Order name: CPK; Complete Time: 12:10 rt 07/12 11:10 Order name: XRAY Chest (1 view); Complete Time: 12:10 rt 07/12 11:10 Order name: CT Head C Spine; Complete Time: 12:10 rt 07/12 11:10 Order name: CT Facial Bones W/O Con; Complete Time: 12:10 rt 07/12 11:10 Order name: EKG; Complete Time: 11:11 rt 07/12 11:10 Order name: Cardiac monitoring; Complete Time: 11:14 rt 07/12 11:10 Order name: EKG - Nurse/Tech; Complete Time: 11:26 rt 07/12 11:10 Order name: IV Saline Lock; Complete Time: : rt 07/12 11:10 Order name: Labs collected and sent; Complete Time: 11:26 rt 07/12 11:10 Order name: O2 Per Protocol; Complete Time: rt 07/12 11:10 Order name: O2 Sat Monitoring; Complete Time: : rt EC:35 Rate is 67 beats/min. Rhythm is regular, Normal Sinus Rhythm with No ectopy. QRS [place] rt is Normal. MN interval is normal. QRS interval is normal. QT interval is normal. No Q waves. T waves are Normal. No ST changes noted. Interpreted by me. Administered Medications: : Drug: Ketorolac IVP 15 mg Route: IVP; Site: right antecubital; ld1 11:25 Drug: Ondansetron IVP 4 mg Route: IVP; Site: right antecubital; ld1 11:25 Drug: NS 0.9% IV 1000 ml Route: IV; Rate: 1 bolus; Site: right antecubital; ld1 Disposition Summary: 07/12/23 12:16 Discharge Ordered Location: Home rt Problem: new rt Symptoms: have improved rt Condition: Stable rt Diagnosis - Fracture of nasal bones rt - Syncope rt Followup: rt - With: Margie Robins MD - When: 5 - 6 days - Reason: Discharge Instructions: - Discharge Summary Sheet rt - Nasal Fracture rt - Syncope rt Forms: - Medication Reconciliation Form rt - Thank You Letter rt - Antibiotic Education rt - Prescription Opioid Use rt - Patient Portal Instructions rt - Leadership Thank You Letter rt Prescriptions: - Clindamycin HCl 300 mg Oral Capsule - take 1 capsule by ORAL route every 6 hours for 10 days; 40 capsule; Refills: 0, rt Product Selection Permitted Signatures: Dispatcher [employer] Caitlyn Lambert, RN RN ld1 Isaías Roman MD MD rt
--- NOTE | 2023-07-12 12:17 | ER ---
Nurse's Notes [facility] Name: Arlet Cannon Age: 22 yrs Sex: Female : 2000 Arrival Date: 07/12/2023 Time: 10:51 Bed 8 Private MD: Diagnosis: Fracture of nasal bones;Syncope Presentation: 07/12 11:10 Chief complaint: Patient states: Passed out while standing up cooking at friends house. ld1 Reports feeling dizzy prior to falling. Hit nose and busted lip on counter or floor. Coronavirus screen: At this time, the client does not indicate any symptoms associated with coronavirus-19. Ebola Screen: No symptoms or risks identified at this time. Initial Sepsis Screen: Does the patient meet any 2 criteria? No. Patient's initial sepsis screen is negative. Does the patient have a suspected source of infection? No. Patient's initial sepsis screen is negative. Risk Assessment: Do you want to hurt yourself or someone else? Patient reports no desire to harm self or others. Onset of symptoms was July 12, 2023. 11:10 Method Of Arrival: Ambulatory ld1 11:10 Acuity: KARLA 3 ld1 Triage Assessment: 11:12 General: Appears in no apparent distress. comfortable, Behavior is calm, cooperative, ld1 appropriate for age. Pain: Complains of pain in face Pain does not radiate. Pain currently is 6 out of 10 on a pain scale. EENT: No signs and/or symptoms were reported regarding the EENT system. Neuro: Level of Consciousness is awake, alert, obeys commands, Oriented to person, place, time, situation. Cardiovascular: Capillary refill < 3 seconds Patient's skin is warm and dry. Respiratory: Airway is patent Respiratory effort is even, unlabored. GI: Abdomen is flat, non-distended. : No signs and/or symptoms were reported regarding the genitourinary system. Derm: No signs and/or symptoms reported regarding the dermatologic system. Musculoskeletal: No signs and/or symptoms reported regarding the musculoskeletal system. 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 - Social history:: Smoking status: Patient denies any tobacco usage or history of. Patient/guardian denies using alcohol. - Family history:: not pertinent. Screenin:13 [facility] ED Fall Risk Assessment (Adult) History of falling in the last 3 months, ld1 including since admission No falls in past 3 months (0 pts). Abuse screen: Denies threats or abuse. Denies injuries from another. Nutritional screening: No deficits noted. Tuberculosis screening: No symptoms or risk factors identified. Assessment: 11:13 Reassessment: See triage assessment. ld1 Vital Signs: 11:10 BP 139 / 78; Pulse 75; Resp 14; Temp 98.4(O); Pulse Ox 100% on R/A; Weight 57 kg; ld1 Height 5 ft. 4 in. ; Pain 6/10; 11:50 BP 115 / 63; Pulse 73; Pulse Ox 99% on R/A; ap3 12:22 BP 118 / 63; Pulse 71; Resp 18; Pulse Ox 100% on R/A; ld1 11:10 Body Mass Index 21.57 (57.00 kg, 162.56 cm) ld1 11:10 Pain Scale: Adult ld1 ED Course: 10:52 Patient arrived in ED. ts1 10:53 Isaías Roman MD is Attending Physician. rt 11:05 Caitlyn Nieto, CHERRIE is Primary Nurse. ld1 11:11 Triage completed. ld1 11:12 Arm band placed on right wrist. ld1 11:13 Patient has correct armband on for positive identification. Placed in gown. Bed in low ld1 position. Call light in reach. Side rails up X2. monitoring tech on. Pulse ox on. NIBP on. Door closed. Noise minimized. Warm blanket given. 11:13 No provider procedures requiring assistance completed. ld1 11:25 CPK Sent. ld1 11:25 Basic Metabolic Panel Sent. ld1 11:25 CBC with Diff Sent. ld1 11:25 LFT's Sent. ld1 11:25 Magnesium Sent. ld1 11:25 Troponin HS Sent. ld1 11:25 Test, Serum Sent. ld1 11:26 Inserted saline lock: 20 gauge in right antecubital area, using aseptic technique. ld1 Blood collected. 11:43 CT Head C Spine In Process Unspecified. EDMS 11:43 CT Facial Bones W/O Con In Process Unspecified. EDMS 11:58 XRAY Chest (1 view) In Process Unspecified. EDMS 12:16 Margie Robins MD is Referral Physician. rt 12:23 IV discontinued, intact, bleeding controlled, No redness/swelling at site. ld1 Administered Medications: 11:25 Drug: Ketorolac IVP 15 mg Route: IVP; Site: right antecubital; ld1 11:25 Drug: Ondansetron IVP 4 mg Route: IVP; Site: right antecubital; ld1 11:25 Drug: NS 0.9% IV 1000 ml Route: IV; Rate: 1 bolus; Site: right antecubital; ld1 Medication: 11:13 VIS not applicable for this client. ld1 Outcome: 12:16 Discharge ordered by MD. rt 12:23 Discharged to home ambulatory. ld1 12:23 Condition: stable 12:23 Discharge instructions given to patient, Instructed on discharge instructions, follow up and referral plans. medication usage, Demonstrated understanding of instructions, follow-up care, medications, Prescriptions given X 1. 12:23 Patient left the ED. ld1 Signatures: Dispatcher [employer] Loulou Schmid RN RN ap3 Caitlyn Nieto RN RN ld1 Isaías Roman MD MD rt Arabella Murphy PAS PAS ts1
[2023-07-12 12:45] VITALS: TEMP 98.4
[2023-07-12 13:01] VITALS: BP 118/63; O2SAT 100
--- NOTE | 2023-07-13 13:59 | EKG ---
Test Date: 2023-07-12 Test Time: 11:20:18 Supervisor [employer]: FLOR MEASUREMENT RESULTS: Intervals: Rate: 67 WA: 126 QRSD: 90 QT: 390 QTc: 412 [place]: P: 69 WA: 126 QRS: 61 T: 49 INTERPRETIVE STATEMENTS: Normal sinus rhythm Normal ECG No previous ECG available for comparison Electronically Signed On 07-13-23 13:56:32 CDT by Reyes Jean Baptiste
== END 2023-07-12 12:23 | disposition home or self-care (01) ==
LOC: ER 10:51
DX: S02.2XXA Fracture of nasal bones, initial encounter for closed fracture (principal); R55 Syncope and collapse; R11.0 Nausea
CPT/HCPCS: 36415; 70450; 70486; 71045; 72125; 76377; 80048; 80076; 82550; 83735; 84484; 84703; 85025; 93005; 96374; 96375; 99285; J2405; J7030

== ENCOUNTER 2023-10-18 19:01 | Emergency (ER) | payer SELFPAY ==
--- OUTSIDE RECORDS SUMMARY | 2023-10-18 19:04 | XMS REPORT | Continuity of Care Document ---
:2000 Author Organization [facility] t Address [address] [place] [address] [address] [place] [address] Care Team Providers Name Role Phone Shield [...] ID 2020-03-30 2020-03-30 Outpatient Shield [id number] [place] 11:13:00 11:13:00 [id number] Results This patient has no known results.
[2023-10-18] MEDS ORDERED: dexAMETHasone 10 MG/ML VIAL ONE (19:23)
[2023-10-18] MEDS ORDERED: FAMOTIDINE 20 MG TAB ONE (19:24)
--- NOTE | 2023-10-18 20:05 | EDPHYS ---
Physician Documentation [facility] Name: Arlet Cannon Age: 23 yrs Sex: Female : 2000 Arrival Date: 10/18/2023 Time: 19:01 Bed 20 Private MD: ED Physician Bradley Bradford HPI: 10/18 20:04 This 23 yrs old Female presents to ER via Ambulatory with complaints of Allergic kb Reaction. 20:04 Patient is a 23-year-old female who presents for a rash that started under her right kb thigh 3 days ago and spread to her right arm last night. Reports it is itchy. States she had poison logan before and it feels similar.. Historical: - Allergies: 19:11 No Known Allergies; nj1 - PMHx: 19:11 None; nj1 - Immunization history:: Client reports receiving the 2nd dose of the Covid vaccine. - Social history:: Smoking status: Reported history of juuling and/or vaping. ROS: 20:04 Constitutional: Negative for fever, chills, and weight loss, kb 20:04 Skin: Positive for rash, of the right lower eyelid, right cheek and right wrist, 20:04 All other systems are negative, Exam: 20:05 Constitutional: This is a well developed, well nourished patient who is awake, alert, kb and in no acute distress. Head/Face: Normocephalic, atraumatic. ENT: Moist Mucous membranes Cardiovascular: Regular rate Respiratory: Respirations even and unlabored. No increased work of breathing. Talking in full sentences MS/ Extremity: Pulses equal, no cyanosis. Neurovascular intact. Full, normal range of motion. Neuro: Awake and alert, GCS 15, oriented to person, place, time, and situation. Moves all extremities. Normal gait. 20:05 Skin: rash a mild rash is noted, consistent with contact dermatitis, Vital Signs: 19:05 BP 136 / 81; Pulse 76; Resp 16; Temp 99(TE); Pulse Ox 98% on R/A; Weight 58.97 kg; nj1 Height 5 ft. 3 in. ; 19:05 Body Mass Index 23.03 (58.97 kg, 160.02 cm) nj MDM: 19:05 Patient medically screened. kb 20:05 Differential diagnosis: anaphylaxis, angioedema, urticaria, Contact dermatitis. Data kb reviewed: vital signs, nurses notes. Counseling: I had a detailed discussion with the patient and/or guardian regarding the historical points, exam findings, and any diagnostic results supporting the discharge/admit diagnosis, the need for outpatient follow up, a family practitioner, to return to the emergency department if symptoms worsen or persist or if there are any questions or concerns that arise at home. Administered Medications: 19:13 Drug: Dexamethasone IM 10 mg IM once Route: IM; Site: right gluteus; rv 19:13 Drug: Famotidine PO 20 mg PO once Route: PO; rv Disposition Summary: 10/18/23 20:04 Discharge Ordered Notes: Location: Home kb Condition: Stable kb Diagnosis - Allergic contact dermatitis, unspecified cause kb Followup: kb - With: Emergency Department - When: As needed - Reason: Worsening of condition Followup: kb - With: Private Physician - When: 2 - 3 days - Reason: Recheck today's complaints, Continuance of care, Re-evaluation by your physician Discharge Instructions: - Discharge Summary Sheet kb - Contact Dermatitis, [id number] kb Forms: - Medication Reconciliation Form kb - Thank You Letter kb - Antibiotic Education kb - Prescription Opioid Use kb - Patient Portal Instructions kb - Leadership Thank You Letter kb Signatures: Giselle Varghese, SHEILA-C BRIQUETTING MACHINE OPERATOR-Tony Moran, RN RN Anita Rosado RN RN nj1
--- NOTE | 2023-10-18 20:05 | ER ---
Nurse's Notes [facility] Name: Arlet Cannon Age: 23 yrs Sex: Female : 2000 Arrival Date: 10/18/2023 Time: 19:01 Bed 20 Private MD: Diagnosis: Allergic contact dermatitis, unspecified cause Presentation: 10/18 19:05 Chief complaint: Patient states: "I think i may have poison logan" Swelling/redness noted nj1 to right lower lid about 3 days ago, getting worse, woke up today and noticed red dots to right lower arm. Has been taking benadryl. 19:05 Coronavirus screen: Vaccine status: Patient reports receiving the 2nd dose of the covid nj1 vaccine. Ebola Screen: Patient denies travel to an Ebola-affected area in the 21 days before illness onset. Onset: The symptoms/episode began/occurred 3 day(s) ago. Initial Sepsis Screen: Does the patient meet any 2 criteria? No. Patient's initial sepsis screen is negative. Does the patient have a suspected source of infection? No. Patient's initial sepsis screen is negative. Risk Assessment: Do you want to hurt yourself or someone else? Patient reports no desire to harm self or others. Onset of symptoms was October 16, 2023. 19:05 Method Of Arrival: Ambulatory [facility] 19:05 Acuity: KARLA 4 nj1 19:16 Anaphylaxis evaluation, no signs or symptoms of anaphylaxis were noted. rv Historical: - Allergies: 19:11 No Known Allergies; nj1 - PMHx: 19:11 None; nj1 - Immunization history:: Client reports receiving the 2nd dose of the Covid vaccine. - Social history:: Smoking status: Reported history of juuling and/or vaping. Screenin:15 [facility] ED Fall Risk Assessment (Adult) History of falling in the last 3 months, rv including since admission No falls in past 3 months (0 pts). Abuse screen: Denies threats or abuse. Denies injuries from another. Nutritional screening: No deficits noted. Tuberculosis screening: No symptoms or risk factors identified. Assessment: 19:14 General: Appears comfortable, Behavior is calm, cooperative. Pain: Denies pain. Neuro: rv Level of Consciousness is awake, alert, obeys commands, Oriented to person, place, time, situation. Cardiovascular: Capillary refill < 3 seconds Patient's skin is warm and dry. Respiratory: Airway is patent Respiratory effort is even, unlabored, Breath sounds are clear bilaterally. Derm: Rash noted that is red, raised, on right eye and right hand. Vital Signs: 19:05 BP 136 / 81; Pulse 76; Resp 16; Temp 99(TE); Pulse Ox 98% on R/A; Weight 58.97 kg; nj1 Height 5 ft. 3 in. ; 19:05 Body Mass Index 23.03 (58.97 kg, 160.02 cm) nv1 ED Course: 19:04 Patient arrived in ED. kj1 19:05 Giselle Varghese FNP-C [facility]. kb 19:05 Bradley Bradford MD is Attending Physician. kb 19:11 Triage completed. nj1 19:12 Arm band placed on. nj1 19:16 Patient has correct armband on for positive identification. Client placed on continuous rv cardiac and pulse oximetry monitoring. NIBP monitoring applied. 19:16 No provider procedures requiring assistance completed. Patient did not have IV access rv during this emergency room visit. Administered Medications: 19:13 Drug: Dexamethasone IM 10 mg IM once Route: IM; Site: right gluteus; rv 19:13 Drug: Famotidine PO 20 mg PO once Route: PO; rv Medication: 19:15 VIS not applicable for this client. rv Outcome: 20:04 Discharge ordered by . kb 20:15 Discharged to home ambulatory, rv 20:15 Condition: good 20:15 Discharge instructions given to patient, Instructed on discharge instructions, follow up and referral plans. Demonstrated understanding of instructions, follow-up care, 20:15 Patient left the ED. rv Signatures: Giselle Varghese FNP-C FNP-Tony Moran, RN RN rv Chely Varghese kj1 Anita Wang RN RN nj1
[2023-10-18 20:23] VITALS: BP 136/81; TEMP 99; O2SAT 98
== END 2023-10-18 20:15 | disposition home or self-care (01) ==
LOC: ER 19:01
DX: L23.9 Allergic contact dermatitis, unspecified cause (principal)
CPT/HCPCS: 96372; 99284; J1100